=== PATIENT | male | born 1930 | race Caucasian/White ===

== ENCOUNTER → 2016-04-15 | Outpatient (CLI) | payer OTHER ==
[~2016-04-15] MED LIST: ALPOPS1510 OPB; ASPEC81 PO; BIMA0.038 OPB; CSPOPS OPB; LEVO25TA34 PO; METO25TA56 PO; OMEG10007 PO; SIMV80TA2 PO
[2016-04-15 11:32] LABS: ALT/SGPT 20 U/L (12-78); BLOOD UREA NITROGEN 12 mg/dl (7-18); BUN/CREATININE RATIO 10.5 (10-20); CALCIUM 8.7 mg/dl (8.5-10.1); CARBON DIOXIDE 25 mmol/L (21-32); CHLORIDE 108 mmol/L (98-107); GLUCOSE 115 mg/dl (70-99); POTASSIUM 4.3 mmol/L (3.5-5.1); SODIUM 142 mmol/L (136-145)
[2016-04-15 11:42] LABS: ALB/GLOB RATIO 0.9 (0.9-2); ALKALINE PHOSPHATASE 112 U/L (45-117); AST/SGOT 17 U/L (15-37)
[2016-04-15 12:15] LABS: ESTIMATED AVERAGE GLUCOSE 123 mg/dl; HA1C FLAG Normal (Normal)
--- NOTE | 2016-04-21 13:48 | CODING QUERY MEDICAL NECESSITY ---
SUPPORTING DIAGNOSIS NEEDED A supporting diagnosis is required for the test/procedure performed on this patient in order for us to be reimbursed by the patient's insurance. Please provide a supporting diagnosis for the following test/procedure listed below next to the test name along with your signature. *If there is no additional diagnosis for this patient that would support the following test/procedure please document that below next to the test/procedure. Test(s)/Procedure(s) that require a supporting diagnosis: * GLYCATED HEMOGLOBIN DIAGNOSIS: * DOS: 04/15/16 Provider Signature: Date: Thank you Julia Peacock Health Information Management Once completed, please kindly fax back to [phone] For questions please call [phone]
== END | disposition home or self-care (01) ==
LOC: C.LAB1850 10:20
PROVIDERS: ATTEND Family Medicine
DX: I10 Essential (primary) hypertension (principal); R73.03 Prediabetes; E03.9 Hypothyroidism, unspecified; E55.9 Vitamin D deficiency, unspecified; R26.81 Unsteadiness on feet

== ENCOUNTER → 2017-05-18 | Outpatient (CLI) | payer OTHER ==
[2017-05-18 17:14] LABS: ALBUMIN 3.8 gm/dl (3.4-5.0); BLOOD UREA NITROGEN 12 mg/dl (7-18); CALCIUM 9.4 mg/dl (8.5-10.1); CARBON DIOXIDE 26 mmol/L (21-32); CREATININE 1.04 mg/dl (0.60-1.40); GLUCOSE 98 mg/dl (70-99); POTASSIUM 4.4 mmol/L (3.5-5.1); SODIUM 137 mmol/L (136-145)
[2017-05-18 17:25] LABS: ALKALINE PHOSPHATASE 115 U/L (45-117); ALT/SGPT 31 U/L (12-78); AST/SGOT 23 U/L (15-37); CHOLESTEROL 142 mg/dl (0-200); LDL CHOLESTEROL CALCULATED 67 mg/dl
[2017-05-19 06:47] LABS: HEMOGLOBIN A1C 5.9 % (4.5-5.6)
== END | disposition home or self-care (01) ==
LOC: C.LABBC 13:34
PROVIDERS: ATTEND Physician Assistant Medical
DX: I10 Essential (primary) hypertension (principal); E78.5 Hyperlipidemia, unspecified; E03.9 Hypothyroidism, unspecified; G25.81 Restless legs syndrome; R73.03 Prediabetes; E55.9 Vitamin D deficiency, unspecified

== ENCOUNTER 2018-03-14 09:03 | Inpatient (IN) ==
--- NOTE | 2018-03-14 09:42 | Emergency Department Note ---
Entered by Sue Umanzor acting as a scribe for History of Present Illness General Chief complaint: Stroke/CVA Symptoms Stated complaint: FELL MON. DISOREINTED STROKE? Time Seen by Provider: 03/14/18 09:16 Source: patient and family History of Present Illness Provider complaint: confusion Onset (ago): week(s) (over the last week) Location: head Maximum Pain Intensity: 0 Quality: + other (confusion) Associated symptoms: + denies other symptoms (denies burning with urination); no cough, no fever/chills, no shortness of breath and no weakness The patient is an 87 year old male who presents to the Emergency Room with complaints of confusion over the last week. Per family, the patient fell out of bed 6 days ago but did not injure anything. His family states that the patient has been confused since this fall and woke up thinking that his was having an affair. Per family, the patient went to the walk-in clinic yesterday and was told to follow-up with his doctor. The patient denies burning with urination. The patient denies having any pain and also denies having chest pain or a racing heart. The patient also denies having numbness or weakness. The patient denies having a fever or cough. He denies having trouble with breathing. His family states that the patient has not been drinking as much. Per family, the patient is not on a blood thinner. The patient reports a history of a triple bypass surgery. Per family, the patient's brother has Parkinson's Disease. Home Medications Home Medications Medication Instructions Recorded Confirmed Type aspirin 81 mg PO QAM 03/14/18 03/14/18 History atorvastatin [Lipitor] 40 mg PO HS 03/14/18 03/14/18 History bimatoprost [Lumigan] 1 drp OPHTHALMIC (EYE) HS 03/14/18 03/14/18 History brimonidine-timolol [Combigan] 1 drp OPHTHALMIC (EYE) BID 03/14/18 03/14/18 History brinzolamide [Azopt] 1 drp OPHTHALMIC (EYE) BID 03/14/18 03/14/18 History levothyroxine 88 mcg PO QAM 03/14/18 03/14/18 History metoprolol tartrate 25 mg PO QAM 03/14/18 03/14/18 History Allergies Allergy/AdvReac Type Severity Reaction Status Date / Time Penicillins Allergy Severe ANAPHYLAXIS Verified 03/14/18 10:14 Past Med/Surg History Medical History CAD (coronary artery disease) HTN (hypertension) Hypothyroid HTN (hypertension) (Chronic) Surgical History S/P triple vessel bypass (Resolved) Family History Other Parkinsons disease Social History marital status: Current Living Situation: Spouse Other Information That Helps Us Care for You: No Feels Safe at Home: Yes Safety Concerns: Feels Safe At This Time Smoking Status: Former smoker Tobacco Type: cigars Do You Dip or Chew Tobacco: No Smoking End Date: 1954 Second Hand Exposure: No Tobacco Cessation Education Requested by Patient: No Hx Alcohol Use: No Hx Substance Use: No Beliefs That Will Affect Care: None Communication Ability: Effective Review of Systems See HPI for pertinent positives & negatives. and A total of 10 systems reviewed and were otherwise negative Physical Exam Vital Signs Vital Signs - 24 hr 03/14/18 09:10 03/14/18 09:26 03/14/18 09:43 Temperature 36.7 C Temperature Source Oral Sepsis Recent Fever Within 48 Hours No Sepsis New/Unexplained Change in Mental Status No Sepsis Action Taken by Nursing No Action Required Pulse Rate 106 H Pulse Rate [Left Brachial] Pulse Rhythm [Left Brachial] Pulse Strength [Left Brachial] Respiratory Rate 20 Respiratory Effort / Characteristics Non-Labored Spontaneous Respiratory Depth Normal Respiratory Pattern Regular Blood Pressure 172/82 H Blood Pressure [Left Arm] Blood Pressure Mean 112 Blood Pressure Mean [Left Arm] Blood Pressure Position [Left Arm] Pulse Oximetry 98 98 95 Pulse Oximetry [Left Index Finger] Oxygen Delivery Method Room Air Room Air Room Air Oxygen Delivery Method [Left Index Finger] 03/14/18 10:10 03/14/18 12:10 03/14/18 12:45 Temperature 36.5 C Temperature Source Oral Sepsis Recent Fever Within 48 Hours Sepsis New/Unexplained Change in Mental Status Sepsis Action Taken by Nursing Pulse Rate Pulse Rate [Left Brachial] 78 94 H 76 Pulse Rhythm [Left Brachial] Regular Pulse Strength [Left Brachial] Normal Respiratory Rate 18 18 16 Respiratory Effort / Characteristics Non-Labored Spontaneous Non-Labored Spontaneous Non-Labored Spontaneous Normal for Patient Respiratory Depth Normal Normal Normal Respiratory Pattern Regular Regular Regular Blood Pressure Blood Pressure [Left Arm] 136/69 187/88 H 157/75 H Blood Pressure Mean Blood Pressure Mean [Left Arm] 91 121 102 Blood Pressure Position [Left Arm] Lying Lying Lying Pulse Oximetry 97 97 97 Pulse Oximetry [Left Index Finger] 97 Oxygen Delivery Method Room Air Room Air Room Air Oxygen Delivery Method [Left Index Finger] Room Air General: Non-ill appearing older male in no acute distress. He is awake and oriented x3. He answers questions appropriately at present. HEENT: Normal cephalic atraumatic. Pupils are equal round and reactive to light. Extraocular movements are intact. Oropharynx is pink with moist mucous membranes. No swelling of the mouth lips or tongue. Neck: Supple with a midline trachea. No meningeal signs or stiffness, no JVD or bruits. No Stridor. Chest: Clear to auscultation bilaterally. No wheezes or rhonchi. No increased work of breathing. Heart: regular rate and rhythm. Abdomen: Soft nontender, nondistended without rebound guarding or rigidity. Extremities: No cyanosis clubbing or edema. No calf tenderness or assymetry Spine/Back. Non tender to palpation. No CVA tenderness Skin: Good turgor without rashes. Neurologic exam: Cranial nerves two through 12 are intact. Motor and sensation are intact and symmetrical throughout. Course 0919: Past medical records reviewed. The patient was evaluated in room B9, and a complete history and physical examination were performed. 1113: I updated the patient and his family who verbalized agreement and understanding of the treatment plan. 1119: I discussed the patient's case with Dr. Carloz Gaalviz who will evaluate the patient for further management. Consultations Consultation #1: Dr. Carloz Galaviz Time: 11:19 Administered Medications Gadobutrol (Gadavist 65ml) 8 ml IV ONCE PRN PRN Reason: Interaction Checking Stop: 03/18/18 14:48 Last Admin: 03/14/18 14:49 Dose: 8 ml Medical Decision Making Differential Diagnosis The patient is an 87 year old male who presents to the ED with confusion. Differential diagnosis includes CVA, intracranial process, UTI, arrhythmia, acute coronary syndrome, electrolyte or metabolic abnormality. Medical Records Attestation: I reviewed the patient's medical records. Home Medications Current Medication List: was personally reviewed by me Laboratory Data Attestation: I reviewed the patient's lab results. Result diagrams: 03/14/18 09:40 03/14/18 09:40 Lab Results 03/14/18 03/14/18 03/14/18 Range/Units 09:40 09:40 09:43 WBC 7.73 (4.8-10.8) K/uL RBC 4.42 L (4.7-6.1) M/uL Hgb 14.1 (14.0-18.0) g/dL Hct 42.1 (42-52) % MCV 95.2 (80-100) fL MCH 31.9 (25-34) pg MCHC 33.5 (32-36) g/dL RDW Std Deviation 46.9 H (36.4-46.3) fL RDW Coeff of [place] 13.5 (11.5-14.5) % Plt Count 210 (130-400) K/uL MPV 11.0 H (7.4-10.4) fL Immature Gran % (Auto) 0.1 % Neut % (Auto) 56.7 % Lymph % (Auto) 32.1 % [place] % (Auto) 9.2 % Eos % (Auto) 1.6 % Baso % (Auto) 0.3 % Immature Gran # (Auto) 0.01 (0.00-0.02) K/uL Neut # (Auto) 4.39 (1.4-6.5) K/uL Lymph # (Auto) 2.48 (1.2-3.4) K/uL [place] # (Auto) 0.71 H (0.11-0.59) K/uL Eos # (Auto) 0.12 (0-0.5) K/uL Baso # (Auto) 0.02 (0-0.2) K/uL Sodium 140 (136-145) mmol/L Potassium 3.6 (3.5-5.1) mmol/L Chloride 108 H (98-107) mmol/L Carbon Dioxide 25 (21-32) mmol/L Anion Gap 7.0 (3-11) BUN 15 (7-18) mg/dl Creatinine 1.18 (0.6-1.4) mg/dl Est Cr Clr Drug Dosing 47.5 ml/min Est GFR ( Amer) 63.5 Est GFR (Non-Af Amer) 54.8 BUN/Creatinine Ratio 12.6 (10-20) Glucose 130 H (70-99) mg/dl Calcium 9.1 (8.5-10.1) mg/dl Total Bilirubin 1.0 (0.2-1) mg/dl AST 29 (15-37) U/L ALT 30 (12-78) U/L Alkaline Phosphatase 113 (45-117) U/L POC Troponin I 0.07 H (0-0.045) ng/ml Troponin I (0-0.045) ng/ml Total Protein 8.0 (6.4-8.2) gm/dl Albumin 3.8 (3.4-5.0) gm/dl Globulin 4.2 H (2.5-4.0) gm/dl Albumin/Globulin Ratio 0.9 (0.9-2) Lipase 172 (73-393) U/L Vitamin B12 (211-911) pg/ml Folate (>5.38) ng/ml TSH (0.300-4.500) uIu/ml Urine Color Urine Appearance (Clear) Urine pH (4.5-7.5) Ur Specific [place] (1.000-1.030) Urine Protein (Negative) Urine Glucose (UA) (Negative) Urine Ketones (Negative) Urine Blood (Negative) Urine Nitrite (Negative) Urine Bilirubin (Negative) Urine Urobilinogen (Negative) Ur Leukocyte Esterase (Negative) Urine WBC (Auto) (0-5) /hpf Urine RBC (Auto) (0-4) /hpf U Hyaline Cast (Auto) (0-5) /lpf U Epithel Cells (Auto) (0-5) /lpf Urine Bacteria (Auto) (Negative) Lyme Disease IgG Ab (Negative) Lyme Disease IgM Ab (Negative) 03/14/18 03/14/18 03/14/18 Range/Units 10:20 13:11 13:11 WBC (4.8-10.8) K/uL RBC (4.7-6.1) M/uL Hgb (14.0-18.0) g/dL Hct (42-52) % MCV (80-100) fL MCH (25-34) pg MCHC (32-36) g/dL RDW Std Deviation (36.4-46.3) fL RDW Coeff of Olinda (11.5-14.5) % Plt Count (130-400) K/uL MPV (7.4-10.4) fL Immature Gran % (Auto) % Neut % (Auto) % Lymph % (Auto) % [place] % (Auto) % Eos % (Auto) % Baso % (Auto) % Immature Gran # (Auto) (0.00-0.02) K/uL Neut # (Auto) (1.4-6.5) K/uL Lymph # (Auto) (1.2-3.4) K/uL [place] # (Auto) (0.11-0.59) K/uL Eos # (Auto) (0-0.5) K/uL Baso # (Auto) (0-0.2) K/uL Sodium (136-145) mmol/L Potassium (3.5-5.1) mmol/L Chloride (98-107) mmol/L Carbon Dioxide (21-32) mmol/L Anion Gap (3-11) BUN (7-18) mg/dl Creatinine (0.6-1.4) mg/dl Est Cr Clr Drug Dosing ml/min Est GFR ( Amer) Est GFR (Non-Af Amer) BUN/Creatinine Ratio (10-20) Glucose (70-99) mg/dl Calcium (8.5-10.1) mg/dl Total Bilirubin (0.2-1) mg/dl AST (15-37) U/L ALT (12-78) U/L Alkaline Phosphatase (45-117) U/L POC Troponin I (0-0.045) ng/ml Troponin I 0.123 H* (0-0.045) ng/ml Total Protein (6.4-8.2) gm/dl Albumin (3.4-5.0) gm/dl Globulin (2.5-4.0) gm/dl Albumin/Globulin Ratio (0.9-2) Lipase (73-393) U/L Vitamin B12 623 (211-911) pg/ml Folate 13.21 (>5.38) ng/ml TSH 0.842 (0.300-4.500) uIu/ml Urine Color Dark Yellow Urine Appearance Clear (Clear) Urine pH 5.5 (4.5-7.5) Ur Specific [place] 1.024 (1.000-1.030) Urine Protein Negative (Negative) Urine Glucose (UA) Negative (Negative) Urine Ketones Trace H (Negative) Urine Blood Trace H (Negative) Urine Nitrite Negative (Negative) Urine Bilirubin Negative (Negative) Urine Urobilinogen Negative (Negative) Ur Leukocyte Esterase Negative (Negative) Urine WBC (Auto) 0 (0-5) /hpf Urine RBC (Auto) 0-4 (0-4) /hpf U Hyaline Cast (Auto) 0 (0-5) /lpf U Epithel Cells (Auto) 5-10 H (0-5) /lpf Urine Bacteria (Auto) Negative (Negative) Lyme Disease IgG Ab (Negative) Lyme Disease IgM Ab (Negative) 03/14/18 Range/Units 13:11 WBC (4.8-10.8) K/uL RBC (4.7-6.1) M/uL Hgb (14.0-18.0) g/dL Hct (42-52) % MCV (80-100) fL MCH (25-34) pg MCHC (32-36) g/dL RDW Std Deviation (36.4-46.3) fL RDW Coeff of [place] (11.5-14.5) % Plt Count (130-400) K/uL MPV (7.4-10.4) fL Immature Gran % (Auto) % Neut % (Auto) % Lymph % (Auto) % [place] % (Auto) % Eos % (Auto) % Baso % (Auto) % Immature Gran # (Auto) (0.00-0.02) K/uL Neut # (Auto) (1.4-6.5) K/uL Lymph # (Auto) (1.2-3.4) K/uL [place] # (Auto) (0.11-0.59) K/uL Eos # (Auto) (0-0.5) K/uL Baso # (Auto) (0-0.2) K/uL Sodium (136-145) mmol/L Potassium (3.5-5.1) mmol/L Chloride (98-107) mmol/L Carbon Dioxide (21-32) mmol/L Anion Gap (3-11) BUN (7-18) mg/dl Creatinine (0.6-1.4) mg/dl Est Cr Clr Drug Dosing ml/min Est GFR ( Amer) Est GFR (Non-Af Amer) BUN/Creatinine Ratio (10-20) Glucose (70-99) mg/dl Calcium (8.5-10.1) mg/dl Total Bilirubin (0.2-1) mg/dl AST (15-37) U/L ALT (12-78) U/L Alkaline Phosphatase (45-117) U/L POC Troponin I (0-0.045) ng/ml Troponin I (0-0.045) ng/ml Total Protein (6.4-8.2) gm/dl Albumin (3.4-5.0) gm/dl Globulin (2.5-4.0) gm/dl Albumin/Globulin Ratio (0.9-2) Lipase (73-393) U/L Vitamin B12 (211-911) pg/ml Folate (>5.38) ng/ml TSH (0.300-4.500) uIu/ml Urine Color Urine Appearance (Clear) Urine pH (4.5-7.5) Ur Specific [place] (1.000-1.030) Urine Protein (Negative) Urine Glucose (UA) (Negative) Urine Ketones (Negative) Urine Blood (Negative) Urine Nitrite (Negative) Urine Bilirubin (Negative) Urine Urobilinogen (Negative) Ur Leukocyte Esterase (Negative) Urine WBC (Auto) (0-5) /hpf Urine RBC (Auto) (0-4) /hpf U Hyaline Cast (Auto) (0-5) /lpf U Epithel Cells (Auto) (0-5) /lpf Urine Bacteria (Auto) (Negative) Lyme Disease IgG Ab Negative (Negative) Lyme Disease IgM Ab Negative (Negative) Imaging Data Radiologist's Impression: Radiology results as stated below per my review and the radiologist's interpretation: SINGLE VIEW CHEST CLINICAL HISTORY: Atypical chest pain. FINDINGS: An AP, portable, upright chest radiograph is compared to study dated . The examination is degraded by portable technique and patient rotation. The patient is status post midline sternotomy. The heart is enlarged and there is atherosclerotic calcification of the thoracic aorta. The pulmonary vasculature is noncongested. Chronic interstitial thickening and mild elevation of the right hemidiaphragm are similar to previous. There is bibasilar scarring/ atelectasis. No airspace consolidation or pleural effusion is identified. No pneumothorax is seen. The skeletal structures are osteopenic. The bony thorax is grossly intact. IMPRESSION: Cardiomegaly with no acute cardiopulmonary abnormality. Electronically signed by: Paolo Bill M.D. 03/14/2018 10:[address] SCAN OF THE BRAIN WITHOUT IV CONTRAST CLINICAL HISTORY: Fall. Change in mental status. COMPARISON STUDY: No priors. TECHNIQUE: Unenhanced axial CT scan of the brain is performed from the vertex to the skull base. A dose lowering technique was utilized adhering to the principles of ALARA. The vertex was scanned twice due to motion artifact. CT DOSE: 691.05 mGy.cm FINDINGS: Brain parenchyma: There are age-related involutional changes noting moderate patchy subcortical and periventricular microangiopathic change. There is no hemorrhage, mass effect, or evidence of acute territorial ischemia by CT criteria. Loya-white matter differentiation is preserved. No extra-axial fluid collection is seen. Ventricles, sulci, cisterns: Prominent secondary to involutional change. Intracranial vasculature: There is atherosclerotic calcification of the cavernous carotid and vertebral arteries. Calvarium: The skeletal structures are osteopenic. No depressed calvarial fracture is identified. Sinuses and mastoids: The visualized paranasal sinuses are clear. The mastoid air cells are well pneumatized. Orbits: The bony orbits are grossly intact. There are bilateral ocular lens implants. IMPRESSION: There is no hemorrhage, mass effect, or evidence of acute territorial ischemia by CT criteria. Electronically signed by: Paolo Bill M.D. 03/14/2018 10:16 AM ECG Data Attestation: I personally reviewed and interpreted this ECG as follows: Indication: weakness Rate (beats per minute): 90 Rhythm: normal sinus Findings: + other (non-specific T-wave abnormality); no ST depression, no ST elevation and no acute ischemic change Comparison ECG Date: from (11/23/08) Change: no significant change Blood Pressure Blood Pressure Findings: Normal blood pressure MDM Narrative This patient comes in as described above. He fell a couple days ago when he slid out of bed. There is no apparent injuries. He had some more disorientation lately. He has no focal neurologic deficits at present. he does not seem to be disoriented but apparently he thought his was having an affair this morning. No external signs of trauma of the head. IV access established. I did order a CAT scan of the head as well as EKG, chest x-ray , andmultiple blood tests and urinalysis and culture. He had no fever or anything to suggest sepsis so far. His initial EKG shows normal sinus rhythm without any definite acute ischemic changes he has some chronic T wave inversions anteriorly which are unchanged. 2009 EKG. He had no chest pain or any symptoms to suggest cardiac disease. His troponin is mildly elevated 0.07 however which is concerning for possible cardiac disease or arrhythmia. CAT scan of his head is unremarkable. Chest x-ray shows no acute findings. He has no significant atrial or metabolic abnormalities and nothing to suggest sepsis or infection at this point urinalysis was unremarkable with a culture pending. 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 I have consulted Trudy Layne from [facility] to see him for these measures. Impression & Plan Altered mental status, Elevated troponin Discharge Plan Visit Data *Final* Discharge Date/Time: 03/14/18 12:20 Chief Complaint: Stroke/CVA Symptoms Stated Complaint: FELL MON. DISOREINTED STROKE? ED Provider: Vern Mueller Discharge Problem: Altered mental status, Elevated troponin Patient Disposition: Admitted As Inpatient Discharge Instructions Interventions: ED Discharge Assessment Last Done: 03/14/18 12:20 The scribe's documentation has been prepared under my direction and personally reviewed by me in its entirety. I confirm that the note above accurately reflects all work, treatment, procedures, and medical decision making performed by me.
[2018-03-14 09:46] LABS: Basophils # (auto) 0.02 K/uL (0-0.2); Basophils % (auto) 0.3 %; Eosinophils # (auto) 0.12 K/uL (0-0.5); Eosinophils % (auto) 1.6 %; Hematocrit (blood only) 42.1 % (42-52); Hemoglobin 14.1 g/dL (14.0-18.0); Immature Granulocytes # (auto) 0.01 K/uL (0.00-0.02); Immature Granulocytes % (auto) 0.1 %; Lymphocytes # (auto) 2.48 K/uL (1.2-3.4); Lymphocytes % (auto) 32.1 %; Mean Corpuscular Hgb Conc 33.5 g/dL (32-36); Mean Corpuscular Volume 95.2 fL (80-100); Monocytes # (auto) 0.71 K/uL (0.11-0.59); Monocytes % (auto) 9.2 %; Neutrophils # (auto) 4.39 K/uL (1.4-6.5); Neutrophils % (auto) 56.7 %; Platelet Count 210 K/uL (130-400); RDW Coefficient of Variation 13.5 % (11.5-14.5); RDW Standard Deviation 46.9 fL (36.4-46.3); Red Blood Count 4.42 M/uL (4.7-6.1); White Blood Count 7.73 K/uL (4.8-10.8)
[2018-03-14 10:05] LABS: Albumin Level 3.8 gm/dl (3.4-5.0); BUN Creatinine Ratio 12.6 (10-20); Calcium 9.1 mg/dl (8.5-10.1); Creatinine Clr Calc Pharmacy 47.5 ml/min; Est GFR (African American) 63.5; Est GFR (Non-African American) 54.8; Potassium 3.6 mmol/L (3.5-5.1)
[2018-03-14 10:08] LABS: Albumin Globulin Ratio 0.9 (0.9-2); Globulin 4.2 gm/dl (2.5-4.0)
--- NOTE | 2018-03-14 10:18 | CT Scan Report ---
CT SCAN OF THE BRAIN WITHOUT IV CONTRAST CLINICAL HISTORY: Fall. Change in mental status. COMPARISON STUDY: No priors. TECHNIQUE: Unenhanced axial CT scan of the brain is performed from the vertex to the skull base. A do se lowering technique was utilized adhering to the principles of ALARA. The vertex was scanned twice due to motion artifact. CT DOSE: 691.05 mGy.cm FINDINGS: Brain parenchyma: There are age-related involutional changes noting moderate patchy subcortical and periventricular microangiopathic change. There is no hemorrhage, mass effect, or evidence of acute te rritorial ischemia by CT criteria. Loya-white matter differentiation is preserved. No extra-axial flu id collection is seen. Ventricles, sulci, cisterns: Prominent secondary to involutional change. Intracranial vasculature: There is atherosclerotic calcification of the cavernous carotid and vertebr al arteries. Calvarium: The skeletal structures are osteopenic. No depressed calvarial fracture is identified. Sinuses and mastoids: The visualized paranasal sinuses are clear. The mastoid air cells are well pneu matized. Orbits: The bony orbits are grossly intact. There are bilateral ocular lens implants. IMPRESSION: There is no hemorrhage, mass effect, or evidence of acute territorial ischemia by CT cornelius martinez. Electronically signed by: Paolo Bill M.D. 03/14/2018 10:16 AM
--- NOTE | 2018-03-14 10:29 | XRay Report ---
SINGLE VIEW CHEST CLINICAL HISTORY: Atypical chest pain. FINDINGS: An AP, portable, upright chest radiograph is compared to study dated 05/10/2008. The examinat ion is degraded by portable technique and patient rotation. The patient is status post midline sterno marcia. The heart is enlarged and there is atherosclerotic calcification of the thoracic aorta. The pul monary vasculature is noncongested. Chronic interstitial thickening and mild elevation of the right h emidiaphragm are similar to previous. There is bibasilar scarring/atelectasis. No airspace consolidat ion or pleural effusion is identified. No pneumothorax is seen. The skeletal structures are osteopeni c. The bony thorax is grossly intact. IMPRESSION: Cardiomegaly with no acute cardiopulmonary abnormality. Electronically signed by: Paolo Bill M.D. 03/14/2018 10:27 AM
[2018-03-14 10:45] LABS: Appearance Urine Clear (Clear); Bacteria Urine Automated Negative (Negative); Bilirubin Urine Negative (Negative); Cast Urine Automated 0 /lpf (0-5); Color Urine Dark Yellow; Glucose Urine UA Negative (Negative); Ketones Urine Trace (Negative); Leukocyte Esterase Urine Negative (Negative); Nitrite Urine Negative (Negative); Protein Urine Negative (Negative); Specific Gravity Urine 1.024 (1.000-1.030); Urobilinogen Urine Negative (Negative); WBC Urine Automated 0 /hpf (0-5); pH Urine 5.5 (4.5-7.5)
--- NOTE | 2018-03-14 12:04 | History & Physical Report ---
Date of Service March 14, 2018 Assessment & Plan (1) Altered mental status: Uncertain etiology CT head neg for acute CXR, UA neg with WBC WNL MRI/MRA pending ECHO pending TSH, lyme, B12, folate pending t/c neuro c/s if workup is neg (2) Elevated troponin: Initial trop 0.07, serials pending EKG with nonspecific T wave abn Hx of CABG ECHO pending (3) Fall: PT/OT pending (4) HTN (hypertension): continue home meds (5) CAD (coronary artery disease): continue home meds (6) Hypothyroid: .cont THS pending (7) DVT prophylaxis: SCDs, aspirin History of Present Illness Chief Complaint: 87 y/o M who was brought to the ED by family for c/o AMS. and daughter state that pt has not been himself since around [place]. states that pt is "delusional". Both and daughter are having a difficult time stating what exactly is altered about the pt other than he is accusing his of things she has not done, such as having an affair. states that pt has been moving around at night thinking that dreams are real. She states she finds him standing near her bed and that one night he sat down on her bed and she noted his lips were white and he wasn't breathing until she started rubbing his back. They state that pt is eating and taking his medications appropriately. He has no episodes of word finding issues although things that he says happened are not happening. Pt fell out of bed on Thursday. He states he was dreaming and tried to get out of bed, but was tangled in the sheets and fell. He denies LOC. He states this happened about once before, several months ago. No other falls. Pt does not feel that anything is wrong. He states that his family is "making things up". Pt denies fever, SOB, chest pain, abd pain, n/v/c/d, LE pain or swelling. Family states he has had no other specific complaints. Pt and used to live in [place] and had dogs. They had several tick infestations during their time there. feels she cannot manage pt at home in his current state. They went to PCP office yesterday during walk-in hours, but no specific issue was identified for further tx at that time. Primary Care Provider: HILARIO Gomez Allergies Allergy/AdvReac Type Severity Reaction Status Date / Time Penicillins Allergy Severe ANAPHYLAXIS Verified 03/14/18 10:14 Home Medications Home Medications Medication Instructions Recorded Confirmed Type aspirin 81 mg PO QAM 03/14/18 03/14/18 History atorvastatin [Lipitor] 40 mg PO HS 03/14/18 03/14/18 History bimatoprost [Lumigan] 1 drp OPHTHALMIC (EYE) HS 03/14/18 03/14/18 History brimonidine-timolol [Combigan] 1 drp OPHTHALMIC (EYE) BID 03/14/18 03/14/18 History brinzolamide [Azopt] 1 drp OPHTHALMIC (EYE) BID 03/14/18 03/14/18 History levothyroxine 88 mcg PO QAM 03/14/18 03/14/18 History metoprolol tartrate 25 mg PO QAM 03/14/18 03/14/18 History Past Med/Surg History Medical History HTN (hypertension) (Chronic) Surgical History S/P triple vessel bypass (Resolved) Family History Other Parkinsons disease Social History Feels Safe at Home: Yes Smoking Status: Former smoker Smoking End Date: 1954 Hx Alcohol Use: No Hx Substance Use: No Preferred Language: [place] Review of Systems Pertinent positives and negatives reviewed in HPI--all others negative Physical Exam 2 Vital Signs (Past 24 Hours): Last Vital Signs Temp 36.7 C 03/14/18 09:10 Pulse 78 03/14/18 10:10 Resp 18 03/14/18 10:10 BP 136/69 03/14/18 10:10 Pulse Ox 97 03/14/18 10:10 Constitutional: WD/WN, vitals as above Eyes: normal visual roper by confrontation and + anicteric sclerae Neck: normal visual inspection and trachea midline Respiratory: normal respiratory effort, lungs clear to auscultation Cardiovascular: Rate/Rhythm: regular rate and regular rhythm Gastrointestinal (Abdomen): Inspection/Auscultation: abdomen not distended Percussion/Palpation: abdomen soft; abdomen nontender Musculoskeletal: Head/Neck/Chest: normocephalic and head atraumatic negative for edema, peripheral pulses intact Skin: no rashes, warm and dry Neurologic: awake; not confused Speech / Cognition: normal speech Psychiatric: A+Ox3, euthymic affect Speech: normal rate/rhythm/volume of speech Affect: + irritable affect (most of conversation is pleasant, however pt does get irritated at the suggestion that something is wrong) Pt was able to tell me all of his medical hx without issue. He recalled what he had for dinner last night and events of last few days, including this morning. Results & Data Diagnostic Findings CXR neg CT head neg for acute ECG Findings: + prolonged QT Additional Comments: Nonspecific T wave abnormality Code Status & VTE Plan Code Status DNR/DNI, per pt, , and daughter. Living will is completed and daughter is POA _ (1) Altered mental status Altered mental status type: unspecified Coma depth: Coma timing: Qualified Code(s): R41.82 - Altered mental status, unspecified
[2018-03-14] MEDS ORDERED: MAGNESIUM HYDROXIDE SUSP 30 ML UDC PO PRN (13:00)
[2018-03-14] MEDS ORDERED: ONDANSETRON INJ 2 MG/ML 2 ML VIAL IV PRN (13:00)
[2018-03-14] MEDS ORDERED: ACETAMINOPHEN 325 MG TAB PO PRN (13:00)
[2018-03-14] MEDS ORDERED: PHARMACIST DISCHARGE MED REC CONSULT PRN (13:00)
[2018-03-14 13:56] LABS: Troponin I 0.123 ng/ml (0-0.045)
[2018-03-14 14:01] LABS: Folate (Folic Acid) 13.21 ng/ml (>5.38)
[2018-03-14 14:21] LABS: Lyme Ab IgG w/WB Rflx Negative (Negative); Lyme Ab IgM w/WB Rflx Negative (Negative)
[2018-03-14] MEDS ORDERED: GADOBUTROL 65ML VIAL IV PRN (14:49)
--- NOTE | 2018-03-14 15:06 | Magnetic Resonance Report ---
MR ANGIOGRAM OF THE BRAIN CLINICAL HISTORY: Change in mental status. COMPARISON STUDY: CT of the brain performed the same day 03/14/2018. TECHNIQUE: 3-D [id number] MR angiography of the intracranial circulation is performed. 3-D tumble views are created and assessed. IV contrast was not administered for this examination. FINDINGS: The internal carotid arteries are widely patent bilaterally, as are the anterior and middl e cerebral arteries. The right vertebral artery and the basilar artery are widely patent, as are the posterior cerebral arteries. There is loss of the left vertebral artery flow void at the skull base. Flow is shown within the distal left vertebral artery below the basilar. The right vertebral artery is dominant. There is no aneurysm or high-grade stenosis seen throughout the intracranial circulatio n. The brain parenchyma is normal as visualized. IMPRESSION: 1. There is loss of the left vertebral artery flow void at the skull base. This could be related to o cclusion, slow flow, or reversal of flow. The left vertebral artery flow void is reconstituted below the basilar artery. See report of the pending contrast-enhanced MR angiogram of the neck for further details. 2. Otherwise unremarkable MR angiogram of the brain. The remaining intracranial vessels are widely pa tent. Electronically signed by: Paolo Bill M.D. 03/14/2018 3:05 PM
--- NOTE | 2018-03-14 15:23 | Magnetic Resonance Report ---
MR ANGIOGRAM OF THE NECK COMBO CLINICAL HISTORY: Change in mental status. COMPARISON STUDY: MR angiogram of the brain performed concurrently on 03/14/2018. TECHNIQUE: Axial 3-D [id number] MR angiography of the neck is performed. Subsequently, following the IV administration of 8 cc of Gadavist. Coronal MR angiogram of the neck was performed to corrobor ate the findings. 3-D reformats are created and assessed. All measurements were calculated based on N ASCET criteria. FINDINGS: Visualized portions of the thoracic aorta are normal in caliber. The aortic arch demonstrat es standard 3-vessel anatomy. The subclavian arteries are widely patent bilaterally. The right common carotid artery is widely patent. There is atherosclerotic irregularity with less than 50% stenosis a t the origin of the right internal carotid artery. The remainder of the right internal carotid artery is widely patent, as is the right external carotid artery. The left common carotid artery is widely patent. There is high-grade (greater than 75%) stenosis at the origin of the left internal carotid ar agustin. The remainder of the left internal carotid artery is widely patent, as is the left external car otid artery. The right vertebral artery is widely patent and dominant. 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 This is reconstituted at the skull base. The visualized intr acranial vessels at the skull base are otherwise patent. IMPRESSION: 1. There is a short segment of high-grade (greater than 75%) stenosis at the origin of the left inter nal carotid artery. 2. There is less than 50% luminal narrowing at the origin of the right internal carotid artery second rayna to atherosclerotic plaque and irregularity. 3. The carotid arteries are otherwise patent. 4. 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 This is reconstituted at the skull base. Electronically signed by: Paolo Bill M.D. 03/14/2018 3:22 PM
--- NOTE | 2018-03-14 15:27 | Magnetic Resonance Report ---
MRI OF THE BRAIN COMBO CLINICAL HISTORY: Change in mental status. COMPARISON STUDY: CT of the brain dated 03/14/2018. TECHNIQUE: MRI of the brain was performed utilizing various T1 and T2-weighted sequences in the axial , sagittal, and coronal planes. Contrast-enhanced sequences were acquired following the administratio n of 8 cc of Gadavist. FINDINGS: Brain parenchyma: There are age-related involutional changes noting moderate subcortical and perivent ricular microangiopathic disease. There is no hemorrhage or mass effect. There is no restricted diffu beverly to suggest acute ischemia. No enhancing mass lesion is identified on the postcontrast images. Gr ay-white matter differentiation is preserved. No extra-axial fluid collection is seen. The cerebellar tonsils are normal in configuration. Ventricles, sulci, and cisterns: Prominent secondary to involutional change. Pituitary and sella: Unremarkable. Intracranial vasculature: There is loss of the left vertebral artery flow void below the skull base. There remaining flow-voids at the skull base are maintained. Orbits: The bony orbits are grossly intact. Orbital contents are normal in appearance, noting bilater al ocular lens implants. Sinuses and mastoids: There is trace mucosal thickening in the left maxillary antrum. The remaining p aranasal sinuses and the mastoid air cells are clear. Calvarium: Unremarkable. Cervical cord: Partially visualized cervical spinal cord is normal in morphology and signal intensity . IMPRESSION: 1. There is no hemorrhage, enhancing mass, or evidence of acute ischemia. 2. There is loss of the left vertebral artery flow void below the skull base. Electronically signed by: Paolo Bill M.D. 03/14/2018 3:25 PM
[2018-03-14] MEDS: BRINZOLAMIDE (AZOPT) OPS 10 ML BTL OP SCH (21:38)
[2018-03-14] MEDS: BIMATOPROST 0.01% OP SOLN 2.5 ML BTL OP SCH (21:38)
[2018-03-14] MEDS: ATORVASTATIN 40 MG TAB PO SCH (21:38)
[2018-03-14] MEDS: BRIMONIDINE TARTRATE/TIMOLOL OP SCH (21:39)
[2018-03-15] MEDS: LEVOTHYROXINE SODIUM 88 MCG TABLET PO SCH (05:34)
[2018-03-15 06:50] LABS: Estimated Average Glucose 126 mg/dl
[2018-03-15 07:55] LABS: Chol HDL Ratio 2; Cholesterol 127 mg/dl (0-200); HDL Cholesterol 57 mg/dl; LDL Cholesterol Calculated 55 mg/dl; Triglycerides 77 mg/dl (0-150); VLDL Cholesterol 15 mg/dl
[2018-03-15] MEDS: BRINZOLAMIDE (AZOPT) OPS 10 ML BTL OP SCH ×2 (09:01→21:27)
[2018-03-15] MEDS: ASPIRIN 81 MG ECTAB PO SCH (09:01)
[2018-03-15] MEDS: METOPROLOL TARTRATE 25 MG TAB PO SCH (09:01)
[2018-03-15] MEDS: BRIMONIDINE TARTRATE/TIMOLOL OP SCH ×2 (09:01→21:27)
--- NOTE | 2018-03-15 12:44 | Consultation ---
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 If pt recovers from current AMS, could consider elective L CEA in future, otherwise, would not recommend surgical intervention on this lesion. Please call if needed. Present on Admission?: Yes History of Present Illness Reason for Consultation: vertebral art occlusion, L ICAS Attending Physician: Alexandru Oswald DO History of Present Illness 87 yo m with hx of CAD, HTN, hypothyroidism, admitted with altered mental status , seen in consultation today for L vertebral art occlusion and LICAS noted on neck MRA. Pt states he is here bc his family is "worried" about him since he had a fall approx 2 weeks prior. Pt's daugter gives more hx, but requests to speak beyond pt's hearing d/t pt denying everything and believing they are lying about his behavior and becoming belligerent. Pt's family states they brought him to [facility] d/t confusion, paranoia, inability to perform certain activities( such as walk to the car and get in, and address a letter), which began suddenly about 1-2 weeks prior. states unable to take care of him bc his balance is off, and his sx are not improving. Pt denies vision changes, unilateral extremity weakness numbness or tingling, facial droop, difficulty speaking or word finding. Denies LONG[place], fever, recent illness, chest pain, SOB, abd pain, n/V, rest pain, claudication, other complaints. MRA demonstrates L vertebral art occlusion and dominant R vert art, as well as approx 80% LICAS. Allergies Allergy/AdvReac Type Severity Reaction Status Date / Time Penicillins Allergy Severe ANAPHYLAXIS Verified 03/14/18 10:14 Home Medications Home Medications Medication Instructions Recorded Confirmed Type aspirin 81 mg PO QAM 03/14/18 03/14/18 History atorvastatin [Lipitor] 40 mg PO HS 03/14/18 03/14/18 History bimatoprost [Lumigan] 1 drp OPHTHALMIC (EYE) HS 03/14/18 03/14/18 History brimonidine-timolol [Combigan] 1 drp OPHTHALMIC (EYE) BID 03/14/18 03/14/18 History brinzolamide [Azopt] 1 drp OPHTHALMIC (EYE) BID 03/14/18 03/14/18 History levothyroxine 88 mcg PO QAM 03/14/18 03/14/18 History metoprolol tartrate 25 mg PO QAM 03/14/18 03/14/18 History Patient History Medical History CAD (coronary artery disease) HTN (hypertension) Hypothyroid HTN (hypertension) (Chronic) Surgical History S/P triple vessel bypass (Resolved) Family History Other Parkinsons disease Social History marital status: Current Living Situation: Spouse Other Information That Helps Us Care for You: No Feels Safe at Home: Yes Safety Concerns: Feels Safe At This Time Smoking Status: Former smoker Tobacco Type: cigars Do You Dip or Chew Tobacco: No Smoking End Date: 1954 Second Hand Exposure: No Tobacco Cessation Education Requested by Patient: No Hx Alcohol Use: No Hx Substance Use: No Beliefs That Will Affect Care: None Preferred Language: German Communication Ability: Effective Advertising Manager Required: No Review of Systems Constitutional: no fever, no chills, no sweats, no fatigue, no malaise and no weight loss Eyes: no blind spots and no problem reported Ear, Nose, Mouth, Throat: no hearing loss and no sore throat Respiratory: no cough, no dyspnea, no dyspnea on exertion and no hemoptysis Cardiovascular: no chest pain, no palpitations, no syncope, no claudication and no problem reported Gastrointestinal: no abdominal pain, no early satiety, no nausea, no vomiting, no cramping, no change in bowel habits, no diarrhea/loose stools and no blood in stools Musculoskeletal: no back pain, no joint pain, no swelling and no muscle weakness Integumentary: no rash, no non-healing lesions, no skin ulcer, no wounds and no erythema Neurologic: + unsteadiness, + behavioral changes and + confusion; no localized weakness, no generalized weakness, no paralysis, no loss of sensation, no tingling, no numbness, no paresthesia, no seizure-like activity, no syncope and no headache(s) Psychiatric: as per Subjective / HPI Hematologic / Lymphatic: no easy bleeding, no easy bruising, no coagulopathy, no night sweats and no unexplained weight loss Physical Exam 2 Vital Signs (Past 24 Hours): Last Vital Signs Temp 36.9 C 03/15/18 11:33 Pulse 60 03/15/18 11:33 Resp 19 03/15/18 11:33 BP 156/76 H 03/15/18 11:33 Pulse Ox 97 03/15/18 11:33 Constitutional: WD/WN, vitals as above well developed, well nourished, + ill appearing (mildly), + thin, + frail appearing, + disheveled, cooperative and comfortable; not in distress Eyes: PERRL, conjunctivae normal, anicteric sclerae EOM intact bilaterally ENMT: external ear and nose normal, oropharynx normal Ears: no hearing impairment Nose: no nasal discharge Throat: no posterior oropharynx abnormality Neck: trachea midline, no thyromegaly no tracheal deviation, no neck crepitus and neck nontender Respiratory: normal respiratory effort, lungs clear to auscultation able to speak in complete sentences; does not use accessory muscles, no cough, not tachypneic and no audible wheezes Auscultation: lungs clear to auscultation bilaterally and + diminished lung sounds; no rhonchi and no wheezes Cardiovascular: RRR, no murmur, no edema Heart Sounds: no gallop and no murmur Vessels: + carotid bruit, normal peripheral pulses, femoral pulses present, posterior tibial pulses present, dorsalis pedis pulses present, brachial pulses present and radial pulses present; no femoral bruit Extremities: normal capillary refill; no edema and no varicosities Chest (Breasts): Chest: normal inspection of chest Gastrointestinal (Abdomen): normal bowel sounds, soft, nontender, no hepatosplenomegaly Inspection/Auscultation: abdomen normal to inspection and normal bowel sounds; abdomen not distended Percussion/Palpation: abdomen soft ; abdomen nontender, no guarding, abdomen not rigid and no abdominal mass Musculoskeletal: no cyanosis or clubbing, extremities motor strength 5/5 Head/Neck/Chest: normocephalic, head atraumatic and neck supple Extremities: extremities normal to inspection and strength 5/5 throughout; full ROM of extremities and no clubbing Skin: no rashes, warm and dry normal turgor, + turgor decreased and + ulcer ; no lesions, no wound, no erythema and no excoriations Trauma: no hematoma and no puncture Neurologic: moves all extremities and awake; no focal motor deficits, not confused (pt oriented, but does not truly understand why he is in hospital) and not obtunded Speech / Cognition: no expressive aphasia and no receptive aphasia Motor/Sensory: no tremor, no pronator drift and no sensory deficit Cranial Nerves: EOM intact bilaterally, normal facial strength and tongue midline Psychiatric: Orientation: alert, oriented x 3, oriented to person, oriented to place, oriented to time and cooperative Apperance: appropriately dressed, + disheveled and appeared stated age Eye Contact: good eye contact Speech : + loud speech Affect: + labile affect and + irritable affect Thought Process: + tangential thought process Cognition: recent memory grossly intact , remote memory grossly intact, attention grossly intact and language grossly intact Estimated Intelligence: average estimated intelligence Insight: + limited insight Lymphatic: no lymphedema
--- NOTE | 2018-03-15 15:20 | Hospitalist Progress Note ---
Date of Service March 15, 2018 Assessment & Plan (1) Altered mental status: - This is of uncertain etiology but does appear he has had progressive decline but acutely worsened since [place] - Exhibited paranoid thinking, ataxic movements, balance issues, hallucinations - these seem to wax and wane as he was A&O x 3 during my visit but then would fixate on something and redirection was difficult by the end of my visit - MRI is negative for CVA - given the degree of stenosis - possible small brain stem infarct maybe not captured on imaging? 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 - Vascular consulted - no intervention at this time - can re-evaluate pending improvement in mentation - When discussed with the patient he reports he knew about his carotid stenosis and reports he wouldn't want surgery regardless because of his age and the risk Present on Admission?: Yes (3) Elevated troponin: - Troponins peaked at 0.123 and trending down - T wave inversions remain - Reports no CP or SOB; Has a H/O CABG - Echo - EF 65-70%; no regional wall motion abnormalities - ASA 81 mg daily; Atorvastatin 40 mg daily; Metoprolol 25 mg daily Present on Admission?: Yes (4) Fall: - Patient reports this was mechanical as he has RLS and was trying to get out of bed but got tangled in his bedding. confirms fall but states he more rolled out of bed then had a direct fall - He clearly does exhibit some tremulous movements and given his poor vision this is likely multifactorial - it does not appear that falls are frequent - PT/OT ordered - appreciate continued assessment Present on Admission?: Yes (5) HTN (hypertension): - Metoprolol 25 mg daily Present on Admission?: Yes (6) CAD (coronary artery disease): - H/O CABG - ASA 81 mg daily; Atorvastatin 40 mg daily; Metoprolol 25 mg daily Present on Admission?: Yes (7) Hypothyroid: - TSH WNL - Levothyroxine 88 mcg daily Present on Admission?: Yes (8) DVT prophylaxis: SCDs Disposition: Await PT/OT evaluations; Appreciate Neurology assessment; family is uncertain they can care for patient at this time Supervising Physician Co-Signing Physician Notes Attending note: patient seen and examined with Cassie Mondragon PA-C. I agree with her progress note. Spent 40 minutes at the bedside with patient and his family, took my own HPI and discussed symptoms. Performed neurologic exam. Performed mini mental exam. Mini mental exam patient scored a 19, has high school education level, suggests moderate to severe cognitive impairment on neurologic exam, strength intact but it is quickly apparent that patient has some type of movement disorder resting tremor bilaterally quick, almost ballistic movements with finger to nose testing and rapid alternating movements difficult time performing finger to finger testing but suspect that is due to poor vision could not elicit any cogwheel rigidity gait is unsteady, wide based, requires a walker to maintain balance - Confusion, delusional thinking normal MRI brain, MRA neck with vertebral thrombus, likely chronic given circulation intact after clot although family says that things have gotten a lot worse recently, suspect he has had dementia for some time scored low on mini mental exam, difficult time with short term memory does a good job with covering memory issues, redirecting questions, speaking about what he can remember will ask neurology to see tomorrow - Movement disorder had a family history with a brother with Parkinson disease certainly has difficulties with balance and coordination movements are not necessarily slow, but almost ballistic, too rapid and uncontrolled slapped himself in the face with finger to nose testing rapid alternating movements caused him to flap his hands violently as above, will ask neurology to evaluate tomorrow Subjective Patient seen and evaluated. Is alert and oriented and has good recall as he was asking about testing that was performed during this admission. States he feels well and anticipates returning home. States he will stay to get checked out but "I know I can leave when I want to" and was joking around a little bit. He only had a small portion of his lunch and is leaning towards the L side but states he dropped something and was able to reposition independently. Had a long conversation about random topics as redirection was slightly difficult. Thinks he is here because of a fall a few weeks ago that he describes as mechanical as he fell out of bed due to being tangled in his blankets. confirms he fell. Initially talked with patient alone and he states he was in the cafeteria. He does not verbalize any complaints and does not feel that anything is wrong with him. After my assessment, I stated I would be back to talk with his family as well. However, patient then tried to move his tray but had a spasm-like movement and nearly knocked the bedside tray over. He then continued to ask for help to get out of bed. When asked where he wanted to go he replied to the cafeteria with his . Tried to redirect but he kept trying to get out of bed. He kept asking me to move "that" but could not name the object. It apparently was the foot of the bed. Finally he did settle down and stated he would just wait for his to come back. He was noted to have tremors of upper and lower extremities. Discussed with and daughter separately. Per their account, patient has had progressive decline in memory/confusion however since [place] this has drastically exacerbated. They note that he is having ataxic movements and balance issues. They also report slurring of his speech which I did not witness however would occ. mumble things that were hard to hear. He has exhibited paranoid thinking such as his having an affair. They also report that he appears to be hallucinating and will talk about things that are not present. No acute finding were found to explain this. He does have poor vision so some testing is difficult to confirm if this is neurologic vs sensory. As finger/ nose testing was difficult but showed tremulous movements. He does endorse RLS and states his brother has Parkinsons. 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 Patient states he knew about the "blockages in my neck" for awhile and states he would not want surgery regardless. Constitutional: no fever, no chills and no fatigue Respiratory: no cough and no dyspnea Cardiovascular: no chest pain and no palpitations Gastrointestinal: no abdominal pain, no nausea, no vomiting, no constipation and no diarrhea/loose stools Genitourinary (Male): no dysuria Integumentary: no rash Neurologic: + restless legs Psychiatric: no confusion and no hallucinations Physical Exam 2 Vital Signs (Past 24 Hours): Last Vital Signs Temp 36.9 C 03/15/18 11:33 Pulse 60 03/15/18 11:33 Resp 19 03/15/18 11:33 BP 156/76 H 03/15/18 11:33 Pulse Ox 97 03/15/18 11:33 Constitutional: well developed and well nourished; no acute distress Eyes: + anicteric sclerae and PERRL Neck: trachea midline Respiratory: normal respiratory effort, lungs clear to auscultation Cardiovascular: Rate/Rhythm: regular rate and regular rhythm Gastrointestinal (Abdomen): Inspection/Auscultation: normal bowel sounds Percussion/Palpation: abdomen soft; abdomen nontender Musculoskeletal: Head/Neck/Chest: normocephalic, head atraumatic and neck supple Skin: no rashes, warm and dry Neurologic: moves all extremities and awake Speech / Cognition: normal speech Motor/Sensory: + tremor (resting tremor of upper extremities; when trying to ambulate some tremulous movements of b/l lower legs; occ. has explosive-like movements as here nearly knocked the bedside table over) Coordination: + abnormal [id number] test (however also has poor vision which could be contributing) Psychiatric: A+Ox3, euthymic affect (as assessment continued got more distracted and difficult to redirect as he stated he wanted to walk to the cafeteria where his was) _ (1) Altered mental status Altered mental status type: unspecified Coma depth: Coma timing: Qualified Code(s): R41.82 - Altered mental status, unspecified (2) HTN (hypertension) Hypertension type: essential hypertension Qualified Code(s): I10 - Essential (primary) hypertension
[2018-03-15] MEDS: ATORVASTATIN 40 MG TAB PO SCH (21:28)
[2018-03-15] MEDS: BIMATOPROST 0.01% OP SOLN 2.5 ML BTL OP SCH (21:28)
[2018-03-16] MEDS: LEVOTHYROXINE SODIUM 88 MCG TABLET PO SCH (06:04)
[2018-03-16] MEDS: METOPROLOL TARTRATE 25 MG TAB PO SCH (07:42)
[2018-03-16] MEDS: BRINZOLAMIDE (AZOPT) OPS 10 ML BTL OP SCH ×2 (07:42→20:43)
[2018-03-16] MEDS: ASPIRIN 81 MG ECTAB PO SCH (07:42)
[2018-03-16] MEDS: BRIMONIDINE TARTRATE/TIMOLOL OP SCH ×2 (07:42→20:43)
[2018-03-16] MEDS ORDERED: OLANZAPINE ZYDIS 5 MG ORALLY DIS. TAB PO PRN (08:44)
--- NOTE | 2018-03-16 09:03 | Neurology Consultation ---
Date of Consultation March 16, 2018 Assessment & Plan (1) Altered mental status: The patient was admitted with a confusion/altered mental status. Today I am not convinced there is any encephalopathy or acute psychiatric problems. Currently, I believe this patient has a combination of short-term memory loss, very poor vision, and hearing loss. 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 His vision is so poor yet I believe he does not have the insight as to the fact that he can't see. I think he believes that he sees very well the. He reaches out and completely misses objects because of his vision. This is likely the source of people thinking he has visual hallucinations. His [id number] hearing loss adds to the perception of confusion as well. He has been on 81 milligram aspirin tablet for about 10 years. MRI of the brain showed no evidence of stroke acute or chronic (2) Tremor: Patient has an obvious postural and action tremor of mild to moderate nature in the upper extremities. I do not see any other signs of Parkinson's disease including no rigidity, cogwheeling, or bradykinesia. There is no dystonia, chorea, or ballistic movements that I can see today. I see no tics or myoclonic jerks today either. The etiology of the tremor is likely secondary to his cerebral vascular disease and advanced age. (3) Stenosis of left internal carotid artery: MR angiography revealed a 75-80 percent left internal carotid artery stenosis at the origin and less than 50 percent stenosis at the origin of the right internal carotid artery. 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 There is reconstitution of flow up by the basilar artery. Patient was seen by vascular surgery and there is no indication for procedure at this time. (4) Restless leg syndrome, uncontrolled: Patient has a significant restless leg syndrome problem. To him, this is his biggest problem. Because of his poor vision, he CT fall trying to get out of bed because of dealing with the restless leg sensations. Currently he is not on any medication for this. Recommendations: 1. Consider switching 81 milligram aspirin tablet daily 2 clopidogrel 75 milligrams daily. This could help prevent cerebral vascular disease and further stenosis of his carotids and vertebrals. 2. Because of his advanced age and lipid parameters, he is not a candidate for high-dose statins. 3. As an outpatient, we could consider treatment for his restless leg syndrome with the long-acting pramipexole or ropinirole. Clonazepam could be considered as well although I would be concerned about increased sedation. I prefer to initiate this as an outpatient and not during this hospitalization. 4. His dementia could be treated with Namenda or donepezil. Again, I would defer this to outpatient 5. Apparently his is not comfortable with caring for him at home anymore. A social service consult would be reasonable and we could consider a rehabilitation hospital stay for strengthening and balance. 6. The drug of choice for treating tremor would be propranolol. He is already on metoprolol. Any change would have to be cleared with Cardiology. As an outpatient we could discontinue metoprolol and initiate propranolol long-acting 60 milligrams once daily. This could then be titrated as needed. 7. He may have an underlying peripheral neuropathy due to age. This could affect his balance as well giving him a sensory ataxia. We could consider EMG and nerve conduction studies as an outpatient Overall, I spent a total of 105 minutes with this case including records review , review of MRI films, direct evaluation the patient at bedside, and discussion of the case with the patient, clinical staff, and Dr. Oswald including differential diagnosis and treatment options. History of Present Illness Reason for Consultation: Patient is an 87-year-old, who was asked to see the request of Dr. Oswald for neurologic consultation regarding confusion and other neurologic issues including abnormal involuntary movements. Requesting Physician: Dr. Oswald Attending Physician: Alexandru Oswald, History of Present Illness Patient has a longstanding history of hypertension and dyslipidemia. He had Titus's thyroiditis the past and has hypothyroidism on levothyroxine replacement currently. He is followed by his primary care physicians and Endocrinology. He has been on 81 milligram aspirin tablet daily since is 3 vessel coronary artery bypass graft in 2008 at [facility]. He is followed by Cardiology and seems to be fairly stable. He is also on metoprolol 25 milligrams daily Lipitor 40 milligrams daily for dyslipidemia. Patient has had significant vision problems for many years. He has open angle glaucoma. He had a right eye cataract surgery in [address] Solorzano. He had a left eye laser trabeculoplasty in 2013. Patient himself thinks his vision is fine. He has been living at home with his but has had increased confusion over the last week or 2. About 6 days ago (he believes it was 3 weeks ago) he fell out of bed trying to get up. He has restless leg syndrome which she believes this is worse problem the and he gets up sits on the edge and tries to get up to relieve this. He lost his balance and fell. Apparently did not get injured. There been reports of some visual hallucinations abnormal involuntary movements, tremor, and he has been more difficult to manage. His feels that she can't manage him anymore at home. Apparently his fluid intake has been worse recently as well. Patient came to the emergency room at 0910 on March 14 with a temperature 36.7 , pulse 106, respiratory rate 20, blood pressure 172/82, and O2 saturation [address] scan of the head was unremarkable. Chest x-ray shows some cardiomegaly but no acute changes. CBC was unremarkable and Chem profile was largely unremarkable as well. Urinalysis was negative and fasting lipid profile showed triglycerides 77, total cholesterol 127, and LDL 55. TSH, B12, and folate levels were all unremarkable. Lyme antibody titers were negative. In the ER, he was apparently oriented and showed no focal neurologic signs. After admission, there was concerns about myoclonic the other types of jerking of his limbs, visual hallucinations, and tremor. MRI of the brain showed marked generalized atrophy and moderate old small vessel ischemic changes with no acute changes or stroke. MR angiography of the head was unremarkable for any significant vascular anomalies. MR angiography of the neck revealed a 75 to 80 percent stenosis of the left internal carotid artery at the origin. On the right it was less than 50 percent. 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 Close reconstituted above this near the basilar artery. He has had no events or seizures. He has been in normal sinus rhythm in the 80s. He has no complaint of headache, other pain, weakness or numbness of a new nature, new vision problems, incontinence of urine, memory issues, or speech problems. He admits to having balance problems and his restless leg syndrome symptoms at night. He knows his vision isn't as good as before but thinks he is seeing reasonably well. Allergies Allergy/AdvReac Type Severity Reaction Status Date / Time Penicillins Allergy Severe ANAPHYLAXIS Verified 03/14/18 10:14 Home Medications Home Medications Medication Instructions Recorded Confirmed Type aspirin 81 mg PO QAM 03/14/18 03/14/18 History atorvastatin [Lipitor] 40 mg PO HS 03/14/18 03/14/18 History bimatoprost [Lumigan] 1 drp OPHTHALMIC (EYE) HS 03/14/18 03/14/18 History brimonidine-timolol [Combigan] 1 drp OPHTHALMIC (EYE) BID 03/14/18 03/14/18 History brinzolamide [Azopt] 1 drp OPHTHALMIC (EYE) BID 03/14/18 03/14/18 History levothyroxine 88 mcg PO QAM 03/14/18 03/14/18 History metoprolol tartrate 25 mg PO QAM 03/14/18 03/14/18 History Patient History Medical History CAD (coronary artery disease) (Chronic) HTN (hypertension) (Chronic) Hypothyroid (Chronic) HTN (hypertension) (Chronic) Carotid stenosis, bilateral Dementia Restless leg syndrome Tremor Surgical History S/P triple vessel bypass (Resolved) History of cataract surgery Family History Mother , in her 50s during an operation No problems noted. 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 Feels Safe at Home: Yes Safety Concerns: Feels Safe At This Time Smoking Status: Former smoker Tobacco Type: pipe and cigars Cigarettes per Day : Never Do You Dip or Chew Tobacco: No Smoking End Date: 1954 Second Hand Exposure: No Tobacco Cessation Education Requested by Patient: No Hx Alcohol Use: No Hx Substance Use: No Beliefs That Will Affect Care: None Preferred Language: Indonesian Communication Ability: Effective Visual Impairment: Severely Limited Hearing Ability: Hard of Hearing 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 Required: No Review of Systems Constitutional: no fever, no fatigue and no weakness Eyes: + worsening vision; no diplopia and no eye pain Ear, Nose, Mouth, Throat: + hearing loss; no ear pain, no tinnitus and no dysphagia Respiratory: no cough and no dyspnea Cardiovascular: no chest pain, no dyspnea and no palpitations Gastrointestinal: no abdominal pain, no nausea and no vomiting Genitourinary (Male): no dysuria, no urinary frequency and no urinary incontinence Musculoskeletal: no back pain, no neck pain, no radicular pain, no myalgia, no muscle weakness and no muscle atrophy Integumentary: no rash and no lesions Neurologic: + tremor(s); no gait abnormality, no falls, no localized weakness, no generalized weakness, no tingling, no numbness, no dizziness, no headache(s) , no abnormal speech, no behavioral changes, no confusion and no memory loss Psychiatric: + abnormal sleep pattern (Has restless leg syndrome, significant); no depression, no anxiety, no difficulty concentrating and no confusion Endocrine: no fatigue and no flushing Hematologic / Lymphatic: no easy bleeding and no easy bruising Allergy / Immunological: no urticaria Physical Exam 2 Vital Signs (Past 24 Hours): Last Vital Signs Temp 36.9 C 03/16/18 08:03 Pulse 84 03/16/18 08:03 Resp 18 03/16/18 08:03 BP 158/79 H 03/16/18 08:03 Pulse Ox 96 03/16/18 08:03 Physical Exam: The patient is right-handed. The patient is awake, alert, and attentive. Speech is normal without any aphasia or dysarthria, although he has no teeth in currently. The patient is oriented to name, age, month, day of the week, and year. He did not know the date ( or ) and did not know where he was. He thought this was home. He was very pleasant and cooperative. Mood and affect are normal and appropriate. General appearance and grooming are normal. Long-term memory was quite intact giving me significant details regarding a past history including dates of medical the procedures which I could verify but he did have some short-term memory. I did not detect any significant auditory or visual hallucinations and he did not have any psychosis or significant anxiety or depression. He was mild to moderately hard of hearing which cause me to repeat questions, in order for him to clarify or answer. The discs are sharp with positive venous pulsations bilaterally. There are no exudates, hemorrhages, or blood vessel changes seen. Pupils are 3 mm bilaterally and reactive to light. Extraocular eye muscles are intact without nystagmus. Visual roper close up seem normal, however I believe his visual acuity is quite poor in almost all directions bilaterally. He was having trouble seeing numbers of fingers (guessing) the at 2 feet. He would reach out for an object and miss it needing a couple of times to get it. I do not believe he was ataxic as much as he thought he could see but actually was not seeing the object he was reaching for. There are no deficits to sensation in the face in all 3 distributions of the fifth cranial nerve bilaterally. Corneal reflexes are positive bilaterally. Facial strength and symmetry was normal bilaterally. Hearing seems mild to moderately decreased bilaterally. Palate moves well without asymmetry. There is normal sternocleidomastoid and trapezius (shoulder shrug) strength bilaterally. Tongue is midline with good strength bilaterally. There was no facial twitching or abnormal involuntary movements. Neck has a full range of motion without discomfort. There are no cervical bruits bilaterally. There are no cranial or ocular bruits. Heart is without murmur. There is a regular rhythm and rate. Cervical, thoracic, and lumbar spine are nontender to palpation. Gait was not tested today but he uses a walker and is slow and cautious. Stance sitting up in bed is good. With outstretched arms there is no drift. There are no resting tremors bilaterally. There is no obvious ataxia with finger to nose testing, but he could missed the target initially because of poor vision. When I brought my finger into arrange he could see better he hit the target. He has mild postural and action tremor of the upper extremities bilaterally. There is reasonable facility in the hands. No other abnormal involuntary movements are noted, including no myoclonic jerks, ballistic movements, chorea, or dystonia. Motor strength is 5/5 diffusely in the arms bilaterally including deltoids, biceps, triceps, brachioradialis, wrist flexors and extensors, sewer separation designer, and intrinsic hand muscles. Motor strength is 5/5 diffusely in the legs bilaterally including hip flexors, quadriceps, hamstrings, gastrocnemius, tibialis anterior , tibialis posterior, and Peroneii muscles bilaterally. Toe extensors are normal and there is good bulk in the extensor digitorum brevis muscles bilaterally. He was not particularly bradykinetic in general. The limbs have good tone without rigidity or spasticity. There is no atrophy noted in the muscles. Muscle bulk is normal, there is no tenderness to palpation , no myotonia to percussion, and no fasciculations seen. Sensory examination is intact to touch and pin throughout all 4 limbs diffusely. Reflexes are 1/4 in the biceps, triceps, brachioradialis, and quadriceps tendons bilaterally. Achilles tendon reflexes were absent bilaterally. Toes are downgoing with plantar stimulation bilaterally. Peripheral pulses are present and of normal quality distally in all 4 limbs. There is no peripheral edema noted in the limbs. Results & Data Diagnostic Findings MRI OF THE BRAIN COMBO CLINICAL HISTORY: Change in mental status. COMPARISON STUDY: CT of the brain dated 03/14/2018. TECHNIQUE: MRI of the brain was performed utilizing various T1 and T2-weighted sequences in the axial, sagittal, and coronal planes. Contrast-enhanced sequences were acquired following the administration of 8 cc of Gadavist. FINDINGS: Brain parenchyma: There are age-related involutional changes noting moderate subcortical and periventricular microangiopathic disease. There is no hemorrhage or mass effect. There is no restricted diffusion to suggest acute ischemia. No enhancing mass lesion is identified on the postcontrast images. Loya-white matter differentiation is preserved. No extra-axial fluid collection is seen. The cerebellar tonsils are normal in configuration. Ventricles, sulci, and cisterns: Prominent secondary to involutional change. Pituitary and sella: Unremarkable. Intracranial vasculature: There is loss of the left vertebral artery flow void below the skull base. There remaining flow-voids at the skull base are maintained. Orbits: The bony orbits are grossly intact. Orbital contents are normal in appearance, noting bilateral ocular lens implants. Sinuses and mastoids: There is trace mucosal thickening in the left maxillary antrum. The remaining paranasal sinuses and the mastoid air cells are clear. Calvarium: Unremarkable. Cervical cord: Partially visualized cervical spinal cord is normal in morphology and signal intensity. IMPRESSION: 1. There is no hemorrhage, enhancing mass, or evidence of acute ischemia. 2. There is loss of the left vertebral artery flow void below the skull base. Electronically signed by: Paolo Bill M.D. 03/14/2018 3:25 PM MR ANGIOGRAM OF THE NECK COMBO CLINICAL HISTORY: Change in mental status. COMPARISON STUDY: MR angiogram of the brain performed concurrently on 03/14/2018. TECHNIQUE: Axial 3-D [id number] MR angiography of the neck is performed. Subsequently, following the IV administration of 8 cc of Gadavist. Coronal MR angiogram of the neck was performed to corroborate the findings. 3-D reformats are created and assessed. All measurements were calculated based on NASCET criteria. FINDINGS: Visualized portions of the thoracic aorta are normal in caliber. The aortic arch demonstrates standard 3-vessel anatomy. The subclavian arteries are widely patent bilaterally. The right common carotid artery is widely patent. There is atherosclerotic irregularity with less than 50% stenosis at the origin of the right internal carotid artery. The remainder of the right internal carotid artery is widely patent, as is the right external carotid artery. The left common carotid artery is widely patent. There is high-grade (greater than 75%) stenosis at the origin of the left internal carotid artery. The remainder of the left internal carotid artery is widely patent, as is the left external carotid artery. The right vertebral artery is widely patent and dominant. 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 This is reconstituted at the skull base. The visualized intracranial vessels at the skull base are otherwise patent. IMPRESSION: 1. There is a short segment of high-grade (greater than 75%) stenosis at the origin of the left internal carotid artery. 2. There is less than 50% luminal narrowing at the origin of the right internal carotid artery secondary to atherosclerotic plaque and irregularity. 3. The carotid arteries are otherwise patent. 4. 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 This is reconstituted at the skull base. Electronically signed by: Paolo Bill M.D. 03/14/2018 3:22 PM _ (1) Altered mental status Altered mental status type: unspecified Coma depth: Coma timing: Qualified Code(s): R41.82 - Altered mental status, unspecified
--- NOTE | 2018-03-16 17:07 | Hospitalist Progress Note ---
Date of Service March 16, 2018 Assessment & Plan (1) Altered mental status: - No acute findings have been discovered to explain changes in mentation. Likely due to hospital admission this is exacerbating some of the delirium - appears this is a progressive decline but acutely worsened around Aaron - exhibiting paranoid thinking, ataxic movements, balance issues, hallucinations; MRI negative for CVA but evidence of chronic vascular changes/atrophy - He has mostly been sleeping during my visits today as he was up through the night - He was exhibiting some hypersexual tendencies today and also more combativeness and throwing his breakfast tray - He was evaluated by neurology which reports his long-term memory is very good but having issues with short-term, as well as multiple sensory losses - Will send for RPR testing and B1 - Can utilize 1:1 when needed but can be driven by nursing assessment - Pt did remove IV line and can hold obtaining new access at this time - Recommend to avoid benzodiazepines but may need Haldol IM if combativeness or agitation becomes threatening to safety - Will start a low dose Seroquel at 12.5 mg HS which may help with sleeping and night-time agitation as discussed with family he has had chronic sleep disturbances and he does get more altered into the evenings even at home - Neurology consulted - question that this may be vascular dementia that is worsened by his sensory deficits - consideration for outpatient initiation of some medications for dementia/RLS Present on Admission?: Yes (2) Stenosis of left internal carotid artery: - MRA shows > 75% stenosis at the origin of the L ICA and < 50% luminal narrowing of R ICA; also reveals age-indeterminant thrombosis of the L vertebral artery that is reconstituted at skull base - Vascular consulted - no intervention at this time - can re-evaluate pending improvement in mentation - When discussed with the patient on 03/15 he reports he knew about his carotid stenosis and reports he wouldn't want surgery regardless because of his age and the risk (3) Elevated troponin: - Troponins peaked at 0.123 and trending down - T wave inversions remain - Reports no CP or SOB; Has a H/O CABG - Echo - EF 65-70%; no regional wall motion abnormalities - ASA 81 mg daily; Atorvastatin 40 mg daily; Metoprolol 25 mg daily (4) Fall: - Patient reports this was mechanical as he has RLS and was trying to get out of bed but got tangled in his bedding. confirms fall but states he more rolled out of bed then had a direct fall - He clearly does exhibit some tremulous movements and given his poor vision this is likely multifactorial - it does not appear that falls are frequent - PT/OT ordered - appreciate continued assessment (5) HTN (hypertension): - Metoprolol 25 mg daily (6) CAD (coronary artery disease): - H/O CABG - ASA 81 mg daily; Atorvastatin 40 mg daily; Metoprolol 25 mg daily (7) Hypothyroid: - TSH WNL - Levothyroxine 88 mcg daily (8) DVT prophylaxis: SCDs Disposition: Discussed with family about acute rehab; Appreciate Neurology assessment Subjective Patient was noted to get very combative this morning. He thought he was at home and wanted to get up to shower. He ultimately threw his breakfast tray and was swinging at staff. During my visit he is calm and falling asleep. Was not given any medication for sedation but was up frequently through the night. Family states he has had chronic issues with insomnia. He has been exhibiting some hypersexual tendencies today. also confirms that he has been slowly getting more aggressive at home when he has these moments but states he will almost just snap out of them Had a long discussion with family and case management today as they do not feel that it would be safe to return to there current arrangement. Referrals placed and will await approval. Daughter is POA and family has talked with patient but he is having only intermittent lucid moments at this point. Review of Systems Unobtainable due to cognitive status Physical Exam 2 Vital Signs (Past 24 Hours): Last Vital Signs Temp 36.8 C 03/16/18 13:12 Pulse 66 03/16/18 13:12 Resp 18 03/16/18 13:12 BP 150/75 H 03/16/18 13:12 Pulse Ox 97 03/16/18 13:12 Constitutional: well developed and well nourished; no acute distress and not ill appearing Respiratory: normal respiratory effort, lungs clear to auscultation Cardiovascular: Rate/Rhythm: regular rate and regular rhythm Gastrointestinal (Abdomen): Inspection/Auscultation: normal bowel sounds Percussion/Palpation: abdomen soft; abdomen nontender Skin: no rashes, warm and dry Psychiatric: Orientation: alert (but easily falling asleep on examination) _ (1) Altered mental status Altered mental status type: unspecified Coma depth: Coma timing: Qualified Code(s): R41.82 - Altered mental status, unspecified (2) HTN (hypertension) Hypertension type: essential hypertension Qualified Code(s): I10 - Essential (primary) hypertension
[2018-03-16] MEDS: BIMATOPROST 0.01% OP SOLN 2.5 ML BTL OP SCH (20:41)
[2018-03-16] MEDS: QUETIAPINE FUMARATE 25 MG TABLET PO SCH (20:43)
[2018-03-16] MEDS: ATORVASTATIN 40 MG TAB PO SCH (20:43)
[2018-03-17] MEDS: LEVOTHYROXINE SODIUM 88 MCG TABLET PO SCH (05:38)
[2018-03-17 07:01] LABS: Hematocrit (blood only) 39.9 % (42-52); Hemoglobin 13.6 g/dL (14.0-18.0); Mean Corpuscular Hgb Conc 34.1 g/dL (32-36); Mean Corpuscular Volume 94.5 fL (80-100); Mean Platelet Volume 10.6 fL (7.4-10.4); Platelet Count 211 K/uL (130-400); RDW Coefficient of Variation 13.2 % (11.5-14.5); RDW Standard Deviation 45.9 fL (36.4-46.3); Red Blood Count 4.22 M/uL (4.7-6.1)
[2018-03-17] MEDS: METOPROLOL TARTRATE 25 MG TAB PO SCH (07:26)
[2018-03-17] MEDS: ASPIRIN 81 MG ECTAB PO SCH (07:26)
[2018-03-17] MEDS: BRINZOLAMIDE (AZOPT) OPS 10 ML BTL OP SCH ×2 (07:27→20:43)
[2018-03-17] MEDS: BRIMONIDINE TARTRATE/TIMOLOL OP SCH ×2 (07:27→20:43)
[2018-03-17 07:28] LABS: BUN Creatinine Ratio 18.6 (10-20); Calcium 8.6 mg/dl (8.5-10.1); Creatinine Clr Calc Pharmacy 43.8 ml/min; Est GFR (African American) 57.5; Est GFR (Non-African American) 49.6; Potassium 3.5 mmol/L (3.5-5.1)
[2018-03-17] MEDS ORDERED: POLYETHYLENE (MIRALAX) 17 GM PACK PO PRN (08:56)
--- NOTE | 2018-03-17 14:07 | Hospitalist Progress Note ---
Date of Service March 17, 2018 Assessment & Plan (1) Altered mental status: - No acute findings have been discovered to explain changes in mentation. More lucid today but tries to redirect questions instead of answering questions about the hospital stay. States he almost called 911 because there were people in his room talking to him and turning on lights at night. When asked if he was referring to nursing staff he stated that these people were not really there and maybe aware of some hallucinations? States he would call 911 if this happens again only because the police will be the only ones to help and could not redirect him from this topic. - There has been a progressive decline in mentation but acutely worsened around [place] - exhibiting paranoid thinking, initially ataxic movements, balance issues, hallucinations; MRI negative for CVA but evidence of chronic vascular changes/atrophy - He has exhibited some hypersexual tendencies during admission and also more combativeness and throwing his breakfast tray - He was evaluated by neurology which reports his long-term memory is very good but having issues with short-term, as well as multiple sensory losses - RPR and B1 pending; ammonia WNL - 1:1 has been removed and will continue to closely monitor; Pt did remove IV line and can hold obtaining new access at this time - Recommend to avoid benzodiazepines but may need Haldol IM if combativeness or agitation becomes threatening to safety - Seems to be tolerating Seroquel 12.5 mg HS at this time without AM sedation - Neurology consulted - discussed with Dr. 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 - Vascular consulted - no intervention at this time - can re-evaluate pending improvement in mentation - When discussed with the patient on 03/15 he reports he knew about his carotid stenosis and reports he wouldn't want surgery regardless because of his age and the risk - Convert from ASA to Plavix 75 mg daily Present on Admission?: Yes (3) Elevated troponin: - Troponins peaked at 0.123 and trended down - T wave inversions on EKG; No chest pain or SOB - Reports no CP or SOB; Has a H/O CABG - Echo - EF 65-70%; no regional wall motion abnormalities - Plavix 75 mg daily; Atorvastatin 40 mg daily; Metoprolol 25 mg daily (4) Fall: - Patient reports this was mechanical as he has RLS and was trying to get out of bed but got tangled in his bedding. confirms fall but states he more rolled out of bed then had a direct fall - He clearly does exhibit some tremulous movements and given his poor vision this is likely multifactorial - it does not appear that falls are frequent - PT/OT ordered - appreciate continued assessment (5) HTN (hypertension): - Metoprolol 25 mg daily (6) CAD (coronary artery disease): - H/O CABG - Plavix 75 mg daily; Atorvastatin 40 mg daily; Metoprolol 25 mg daily (7) Hypothyroid: - TSH WNL - Levothyroxine 88 mcg daily (8) DVT prophylaxis: SCDs Disposition: Planning on possible [facility] on Thursday Subjective Patient had a good evening and has been awake and oriented this AM on my examination. He states that he is ready to return home. Had a long discussion with patient about the events of his stay and the concern for safety in the home. He states that he can guarantee that he did not have moments when he was not acting himself. However when asked if he remembers events of this hospital stay he kept trying to redirect the question such as saying "depends on what you are talking about" instead of directly answering. He then stated that he did notice that people were in his room and talking to him. When I asked if he meant nursing staff he said "no, these people were not really there" He states he was planning on calling 911. When trying to tell him that if this would happen again to let us know but kept insisting that only the police would be able to help him. He then stated he would tell his daughter about this event later and then stated he was done talking to me. He said he would think about rehab as family did express their concerns with him about safety for him and his . Constitutional: no fever, no chills and no fatigue Eyes: no worsening vision Respiratory: no cough and no dyspnea Cardiovascular: no chest pain Gastrointestinal: + constipation; no abdominal pain, no nausea, no vomiting and no diarrhea/loose stools Musculoskeletal: no body aches Integumentary: no rash Psychiatric: + abnormal sleep pattern Physical Exam 2 Vital Signs (Past 24 Hours): Last Vital Signs Temp 36.5 C 03/17/18 07:23 Pulse 76 03/17/18 07:23 Resp 18 03/17/18 07:23 BP 150/74 H 03/17/18 07:23 Pulse Ox 94 03/17/18 07:23 Constitutional: well developed and well nourished; no acute distress and not ill appearing Eyes: + anicteric sclerae and PERRL Neck: trachea midline Respiratory: normal respiratory effort, lungs clear to auscultation Cardiovascular: Rate/Rhythm: regular rate and regular rhythm Gastrointestinal (Abdomen): Inspection/Auscultation: normal bowel sounds Percussion/Palpation: abdomen soft; abdomen nontender Musculoskeletal: Head/Neck/Chest: normocephalic, head atraumatic and neck supple Skin: no rashes, warm and dry Neurologic: moves all extremities and awake Speech / Cognition: normal speech Motor/Sensory: + tremor (no visualized tremor during my visit the morning) Coordination: + abnormal [id number] test (however also has poor vision which could be contributing) Psychiatric: A+Ox3, euthymic affect (as assessment continued got more distracted and difficult to redirect as he stated he wanted to walk to the cafeteria where his was) Orientation: alert (but easily falling asleep on examination) _ (1) Altered mental status Altered mental status type: unspecified Coma depth: Coma timing: Qualified Code(s): R41.82 - Altered mental status, unspecified (2) HTN (hypertension) Hypertension type: essential hypertension Qualified Code(s): I10 - Essential (primary) hypertension
[2018-03-17] MEDS: QUETIAPINE FUMARATE 25 MG TABLET PO SCH (20:42)
[2018-03-17] MEDS: BIMATOPROST 0.01% OP SOLN 2.5 ML BTL OP SCH (20:43)
[2018-03-17] MEDS: ATORVASTATIN 40 MG TAB PO SCH (20:44)
[2018-03-18] MEDS: LEVOTHYROXINE SODIUM 88 MCG TABLET PO SCH (05:41)
[2018-03-18] MEDS: METOPROLOL TARTRATE 25 MG TAB PO SCH (10:32)
[2018-03-18] MEDS: CLOPIDOGREL BISULFATE 75 MG TAB PO SCH (10:32)
[2018-03-18] MEDS: BRIMONIDINE TARTRATE/TIMOLOL OP SCH ×2 (10:33→20:54)
[2018-03-18] MEDS: BRINZOLAMIDE (AZOPT) OPS 10 ML BTL OP SCH ×2 (10:33→20:53)
[2018-03-18] MEDS: POLYETHYLENE (MIRALAX) 17 GM PACK PO SCH (10:34)
--- NOTE | 2018-03-18 15:16 | Hospitalist Progress Note ---
Date of Service March 18, 2018 Assessment & Plan (1) Altered mental status: - No acute findings have been discovered to explain changes in mentation. Labs unremarkable; Ammonia WNL; RPR non-reactive; TSH WNL; B12 WNL; Lyme neg; UA unremarkable/no signs of infection; MRI negative for CVA; B1 is pending - Mini-mental exam initially on exam - scored 19 with high school eduction - suggesting moderate to severe cognitive impairment - Also exhibits sensory losses of vision and hearing however he denies both. However when you has him to grab something her had the tendency to miss the target - Having periods of lucidity but then can easily exhibit paranoid thinking ( having an affair/needing to call police). Today states he felt that he needed to call 911 but was using the TV remote to do this. He also revealed that he thought he was having hallucinations the other night and was planning on calling 911. States he doesn't want to follow up with neurology due to his having issues with other doctors. He will try and redirect questions to avoid answering them. Earlier in the admission he displayed some hypersexual tendencies. Was also exhibiting some ballistic/ataxic like movements on admission however these have since stopped - There has been a progressive decline in mentation but acutely worsened around [place] - He was evaluated by neurology which reports his long-term memory is very good but having issues with short-term, as well as multiple sensory losses - Started Seroquel 12.5 mg HS which he has been on for approx. 2 days now which has have decrease his initial combativeness but still having some sundowning moments. Does not appear to be experiencing too much sedation in the AM but will need to watch. 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 - Vascular consulted - no intervention at this time - can re-evaluate pending improvement in mentation - When discussed with the patient on 03/15 he reports he knew about his carotid stenosis and reports he wouldn't want surgery regardless because of his age and the risk - Convert from ASA to Plavix 75 mg daily Present on Admission?: Yes (3) Elevated troponin: - Troponins peaked at 0.123 and trended down - T wave inversions on EKG; No chest pain or SOB - Reports no CP or SOB; Has a H/O CABG - Echo - EF 65-70%; no regional wall motion abnormalities - Plavix 75 mg daily; Atorvastatin 40 mg daily; Metoprolol 25 mg daily Present on Admission?: Yes (4) Fall: - Patient reports this was mechanical as he has RLS and was trying to get out of bed but got tangled in his bedding. confirms fall but states he more rolled out of bed then had a direct fall - He clearly does exhibit some tremulous movements at times and given his poor vision this is likely multifactorial - it does not appear that falls are frequent - PT/OT ordered - appreciate continued assessment Present on Admission?: Yes (5) HTN (hypertension): - Metoprolol 25 mg daily Present on Admission?: Yes (6) CAD (coronary artery disease): - H/O CABG - Plavix 75 mg daily; Atorvastatin 40 mg daily; Metoprolol 25 mg daily Present on Admission?: Yes (7) Hypothyroid: - TSH WNL - Levothyroxine 88 mcg daily Present on Admission?: Yes (8) DVT prophylaxis: SCDs Disposition: Planning on possible [facility] on Thursday Subjective Patient was a little more confused this AM but quickly improved after further sleep and has been calm and cooperative. When talking with the patient he wasn't as conversant as he was eating lunch. Stated he was feeling ok and was enjoying lunch. Just stated that I can talk with his and daughter when they come back. Discussed with them earlier before visiting the patient and they are viewing [facility] today with plans to transition there tomorrow. Constitutional: no fever and no chills Respiratory: no cough and no dyspnea Cardiovascular: no chest pain Gastrointestinal: no abdominal pain, no nausea, no vomiting, no constipation and no diarrhea/loose stools Genitourinary (Male): no dysuria Musculoskeletal: no body aches Physical Exam 2 Vital Signs (Past 24 Hours): Last Vital Signs Temp 36.4 C L 03/18/18 14:52 Pulse 64 03/18/18 14:52 Resp 18 03/18/18 14:52 BP 123/77 03/18/18 14:52 Pulse Ox 96 03/18/18 14:52 Constitutional: well developed and well nourished; no acute distress and not ill appearing Eyes: + anicteric sclerae and PERRL Neck: trachea midline Respiratory: normal respiratory effort, lungs clear to auscultation Cardiovascular: Rate/Rhythm: regular rate and regular rhythm Gastrointestinal (Abdomen): Inspection/Auscultation: normal bowel sounds Percussion/Palpation: abdomen soft; abdomen nontender Musculoskeletal: Head/Neck/Chest: normocephalic, head atraumatic and neck supple Skin: no rashes, warm and dry Neurologic: moves all extremities and awake Speech / Cognition: normal speech Psychiatric: Orientation: alert and oriented x 3 _ (1) Altered mental status Altered mental status type: unspecified Coma depth: Coma timing: Qualified Code(s): R41.82 - Altered mental status, unspecified (2) HTN (hypertension) Hypertension type: essential hypertension Qualified Code(s): I10 - Essential (primary) hypertension
[2018-03-18] MEDS: BIMATOPROST 0.01% OP SOLN 2.5 ML BTL OP SCH (20:53)
[2018-03-18] MEDS: QUETIAPINE FUMARATE 25 MG TABLET PO SCH (20:54)
[2018-03-18] MEDS: ATORVASTATIN 40 MG TAB PO SCH (20:54)
[2018-03-19] MEDS: LEVOTHYROXINE SODIUM 88 MCG TABLET PO SCH (05:51)
[2018-03-19 08:08] VITALS: BP 130/81; TEMP 97.5; O2SAT 97
[2018-03-19] MEDS: CLOPIDOGREL BISULFATE 75 MG TAB PO SCH (08:33)
[2018-03-19] MEDS: METOPROLOL TARTRATE 25 MG TAB PO SCH (08:33)
[2018-03-19] MEDS: POLYETHYLENE (MIRALAX) 17 GM PACK PO SCH (08:33)
[2018-03-19] MEDS: BRINZOLAMIDE (AZOPT) OPS 10 ML BTL OP SCH (08:33)
[2018-03-19] MEDS: BRIMONIDINE TARTRATE/TIMOLOL OP SCH (08:34)
[2018-03-19 12:31] VITALS: PULSE 82
--- NOTE | 2018-03-19 16:35 | Discharge Summary ---
Date of Service March 19, 2018 Admission HPI Per Admitting Provider Chief Complaint: 87 y/o M who was brought to the ED by family for c/o AMS. and daughter state that pt has not been himself since around [place]. states that pt is "delusional". Both and daughter are having a difficult time stating what exactly is altered about the pt other than he is accusing his of things she has not done, such as having an affair. states that pt has been moving around at night thinking that dreams are real. She states she finds him standing near her bed and that one night he sat down on her bed and she noted his lips were white and he wasn't breathing until she started rubbing his back. They state that pt is eating and taking his medications appropriately. He has no episodes of word finding issues although things that he says happened are not happening. Pt fell out of bed on Thursday. He states he was dreaming and tried to get out of bed, but was tangled in the sheets and fell. He denies LOC. He states this happened about once before, several months ago. No other falls. Pt does not feel that anything is wrong. He states that his family is "making things up". Pt denies fever, SOB, chest pain, abd pain, n/v/c/d, LE pain or swelling. Family states he has had no other specific complaints. Pt and used to live in [place] and had dogs. They had several tick infestations during their time there. feels she cannot manage pt at home in his current state. They went to PCP office yesterday during walk-in hours, but no specific issue was identified for further tx at that time. Principal Diagnosis Vascular Dementia with Behavioral Disturbances Discharge Exam Refused physical exam. When placing hand on his R arm when talking to him he stated "watch your hand and move it" Constitutional well developed and well nourished; no acute distress, not ill appearing and + uncooperative (mildly agitated - refused examination) Eyes + anicteric sclerae Neck trachea midline Respiratory normal respiratory effort Musculoskeletal Head/Neck/Chest: normocephalic and head atraumatic Skin no rashes, warm and dry Neurologic moves all extremities and awake Speech / Cognition: normal speech Motor/Sensory: + tremor Psychiatric Orientation: alert and oriented to person Eye Contact: good eye contact Motor Behavior: + tremor Speech: normal rate/rhythm/volume of speech Affect: + flat affect Mood: + irritable mood Thought Content: + delusions Insight: + poor insight Judgement: + poor judgement Discharge Data Allergies Allergy/AdvReac Type Severity Reaction Status Date / Time Penicillins Allergy Severe ANAPHYLAXIS Verified 03/14/18 10:14 Consultations 03/14/18 18:05 Consult Vascular Surgery Routine 03/15/18 15:15 Consult Neurology Routine Ordered Studies MR ANGIOGRAM OF THE BRAIN FINDINGS: The internal carotid arteries are widely patent bilaterally, as are the anterior and middle cerebral arteries. The right vertebral artery and the basilar artery are widely patent, as are the posterior cerebral arteries. There is loss of the left vertebral artery flow void at the skull base. Flow is shown within the distal left vertebral artery below the basilar. The right vertebral artery is dominant. There is no aneurysm or high-grade stenosis seen throughout the intracranial circulation. The brain parenchyma is normal as visualized. IMPRESSION: 1. There is loss of the left vertebral artery flow void at the skull base. This could be related to occlusion, slow flow, or reversal of flow. The left vertebral artery flow void is reconstituted below the basilar artery. See report of the pending contrast-enhanced MR angiogram of the neck for further details. 2. Otherwise unremarkable MR angiogram of the brain. The remaining intracranial vessels are widely patent. MR ANGIOGRAM OF THE NECK COMBO FINDINGS: Visualized portions of the thoracic aorta are normal in caliber. The aortic arch demonstrates standard 3-vessel anatomy. The subclavian arteries are widely patent bilaterally. The right common carotid artery is widely patent. There is atherosclerotic irregularity with less than 50% stenosis at the origin of the right internal carotid artery. The remainder of the right internal carotid artery is widely patent, as is the right external carotid artery. The left common carotid artery is widely patent. There is high-grade (greater than 75%) stenosis at the origin of the left internal carotid artery. The remainder of the left internal carotid artery is widely patent, as is the left external carotid artery. The right vertebral artery is widely patent and dominant. 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 This is reconstituted at the skull base. The visualized intracranial vessels at the skull base are otherwise patent. IMPRESSION: 1. There is a short segment of high-grade (greater than 75%) stenosis at the origin of the left internal carotid artery. 2. There is less than 50% luminal narrowing at the origin of the right internal carotid artery secondary to atherosclerotic plaque and irregularity. 3. The carotid arteries are otherwise patent. 4. 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 This is reconstituted at the skull base. MRI OF THE BRAIN COMBO FINDINGS: Brain parenchyma: There are age-related involutional changes noting moderate subcortical and periventricular microangiopathic disease. There is no hemorrhage or mass effect. There is no restricted diffusion to suggest acute ischemia. No enhancing mass lesion is identified on the postcontrast images. Loya-white matter differentiation is preserved. No extra-axial fluid collection is seen. The cerebellar tonsils are normal in configuration. Ventricles, sulci, and cisterns: Prominent secondary to involutional change. Pituitary and sella: Unremarkable. Intracranial vasculature: There is loss of the left vertebral artery flow void below the skull base. There remaining flow-voids at the skull base are maintained. Orbits: The bony orbits are grossly intact. Orbital contents are normal in appearance, noting bilateral ocular lens implants. Sinuses and mastoids: There is trace mucosal thickening in the left maxillary antrum. The remaining paranasal sinuses and the mastoid air cells are clear. Calvarium: Unremarkable. Cervical cord: Partially visualized cervical spinal cord is normal in morphology and signal intensity. IMPRESSION: 1. There is no hemorrhage, enhancing mass, or evidence of acute ischemia. 2. There is loss of the left vertebral artery flow void below the skull base. Hospital Course (1) Altered mental status: - No acute findings have been discovered to explain changes in mentation. Labs unremarkable; Ammonia WNL; RPR non-reactive; TSH WNL; B12 WNL; Lyme neg; UA unremarkable/no signs of infection; MRI negative for CVA; B1 is pending - Mini-mental exam initially on exam - scored 19 with high school education - suggesting moderate to severe cognitive impairment - Also exhibits sensory losses of vision and hearing however he denies both. However when you ask him to grab something he has the tendency to miss the target - Having periods of lucidity but then can easily exhibit paranoid thinking ( having an affair/needing to call police). He has increasingly talked about wanted to call the police but has been seen trying to use the television remote to do this. This AM he stated he needed to call them because his cellphone and two remote controls were stolen and new he wasn't at home but stated "can you tell me the actual name of this place". These episodes are more prevalent at night and special education professional but can sporadically occur mid-day. He also revealed that he thought he was having hallucinations the other night and was planning on calling 911. States he doesn't want to follow up with neurology due to his having issues with other doctors and exhibited some paranoid thinking in regards to seeing doctors. He will try and redirect questions to avoid answering them. Earlier in the admission he displayed some hypersexual tendencies (masturbating). Was also exhibiting some ballistic/ataxic like movements on admission however these have since stopped but still has some evidence of a tremor and some RLS - There has been a progressive decline in mentation per family report but acutely worsened around [place] - He was evaluated by neurology which reports his long-term memory is very good but having issues with short-term, as well as multiple sensory losses - Started Seroquel 12.5 mg HS which he has been on for approx. 3 days now which has decreased his initial combativeness but still having some sundowning moments. Does not appear to be experiencing too much sedation in the AM but will need to watch. As well, these medications can increase stroke risk in the elderly - Recommend to avoid benzodiazepines but may need Haldol IM if combativeness or agitation becomes threatening to safety; Also had Zyprexa 2.5 mg PRN ordered but did not need to use this - Neurology consulted - suspect this is a vascular dementia with sensory losses contributing to his hallucinations - recommend outpatient F/U (if patient will agree) - recommended to convert ASA to Plavix (2) Stenosis of left internal carotid artery: - MRA shows > 75% stenosis at the origin of the L ICA and < 50% luminal narrowing of R ICA; also reveals age-indeterminant thrombosis of the L vertebral artery that is reconstituted at skull base - Vascular consulted - no intervention at this time - can re-evaluate pending improvement in mentation - When discussed with the patient on 03/15 he reports he knew about his carotid stenosis and reports he wouldn't want surgery regardless because of his age and the risk - Convert from ASA to Plavix 75 mg daily (3) Elevated troponin: - Troponins peaked at 0.123 and trended down - No chest pain or SOB; history of CABG - Echo - EF 65-70%; no regional wall motion abnormalities - Plavix 75 mg daily; Atorvastatin 40 mg daily; Metoprolol 25 mg daily (4) Fall: - Patient reports this was mechanical as he has RLS and was trying to get out of bed but got tangled in his bedding. confirms fall but states he more rolled out of bed then had a direct fall - He clearly does exhibit some tremulous movements at times and given his poor vision this is likely multifactorial - it does not appear that falls are frequent - Used Requip in the past without improvement of symptoms (5) HTN (hypertension): - Metoprolol 25 mg daily (6) CAD (coronary artery disease): - H/O CABG - Plavix 75 mg daily; Atorvastatin 40 mg daily; Metoprolol 25 mg daily (7) Hypothyroid: - TSH WNL - Levothyroxine 88 mcg daily Total Time Total Time Spent Total Time Spent (In Minutes): Greater than 30 minutes Discharge Plan Discharge Items Patient Disposition: Transfer [facility] Fac Reason For Visit: AMS Discharge Diagnosis: Vascular Dementia with Behavioral Disturbances Discharge Goals: Decrease discomfort, Improve function and Increase independence Activity: Resume your previous activity Non-emergency contact: Primary Care Provider Call non-emergency contact if: you have any medication questions, your symptoms worsen and you have a fever Diet: Regular Addtl Provider Instructions: Altered mental status: - No acute findings have been discovered to explain changes in mentation. Labs unremarkable; Ammonia WNL; RPR non-reactive; TSH WNL; B12 WNL; Lyme neg; UA unremarkable/no signs of infection; MRI negative for CVA; B1 is pending - Mini-mental exam initially on exam - scored 19 with high school education - suggesting moderate to severe cognitive impairment - Also exhibits sensory losses of vision and hearing however he denies both. However when you ask him to grab something he has the tendency to miss the target - Having periods of lucidity but then can easily exhibit paranoid thinking ( having an affair/needing to call police). He has increasingly talked about wanted to call the police but has been seen trying to use the television remote to do this. This AM he stated he needed to call them because his cellphone and two remote controls were stolen and new he wasn't at home but stated "can you tell me the actual name of this place". These episodes are more prevalent at night and special education professional but can sporadically occur mid-day. He also revealed that he thought he was having hallucinations the other night and was planning on calling 911. States he doesn't want to follow up with neurology due to his having issues with other doctors and exhibited some paranoid thinking in regards to seeing doctors. He will try and redirect questions to avoid answering them. Earlier in the admission he displayed some hypersexual tendencies (masturbating). Was also exhibiting some ballistic/ataxic like movements on admission however these have since stopped but still has some evidence of a tremor and some RLS - There has been a progressive decline in mentation per family report but acutely worsened around [place] - He was evaluated by neurology which reports his long-term memory is very good but having issues with short-term, as well as multiple sensory losses - Started Seroquel 12.5 mg HS which he has been on for approx. 3 days now which has decreased his initial combativeness but still having some moments. Does not appear to be experiencing too much sedation in the AM but will need to watch. As well, these medications can increase stroke risk in the elderly - Recommend to avoid benzodiazepines but may need Haldol IM if combativeness or agitation becomes threatening to safety; Also had Zyprexa 2.5 mg PRN ordered but did not need to use this - Neurology consulted - suspect this is a vascular dementia with sensory losses contributing to his hallucinations - recommend outpatient F/U (if patient will agree) - recommended to convert ASA to Plavix Stenosis of left internal carotid artery: - MRA shows > 75% stenosis at the origin of the L ICA and < 50% luminal narrowing of R ICA; also reveals age-indeterminant thrombosis of the L vertebral artery that is reconstituted at skull base - Vascular consulted - no intervention at this time - can re-evaluate pending improvement in mentation - When discussed with the patient on 03/15 he reports he knew about his carotid stenosis and reports he wouldn't want surgery regardless because of his age and the risk - Convert from ASA to Plavix 75 mg daily Elevated troponin: - Troponins peaked at 0.123 and trended down - No chest pain or SOB; history of CABG - Echo - EF 65-70%; no regional wall motion abnormalities - Plavix 75 mg daily; Atorvastatin 40 mg daily; Metoprolol 25 mg daily Fall: - Patient reports this was mechanical as he has RLS and was trying to get out of bed but got tangled in his bedding. confirms fall but states he more rolled out of bed then had a direct fall - He clearly does exhibit some tremulous movements at times and given his poor vision this is likely multifactorial - it does not appear that falls are frequent - Used Requip in the past without improvement of symptoms HTN (hypertension): - Metoprolol 25 mg daily CAD (coronary artery disease): - H/O CABG - Plavix 75 mg daily; Atorvastatin 40 mg daily; Metoprolol 25 mg daily Hypothyroid: - TSH WNL - Levothyroxine 88 mcg daily Constipation: - Usually uses daily Miralax Prescriptions: New quetiapine 25 mg Tablet 12.5 mg PO HS 30 Days Qty: 15 RF: 0 polyethylene glycol 3350 [Miralax] 17 gram Powder In Packet 17 g PO DAILY 30 Days Qty: 30 RF: 0 clopidogrel 75 mg Tablet 75 mg PO QAM 30 Days Qty: 30 RF: 0 Continue atorvastatin [Lipitor] 40 mg Tablet 40 mg PO HS RF: 0 brinzolamide 1 % drops,suspension 1 drp ophthalmic (eye) BID RF: 0 levothyroxine 88 mcg Tablet 88 mcg PO QAM RF: 0 metoprolol tartrate 25 mg Tablet 25 mg PO QAM RF: 0 brimonidine-timolol [Combigan] 0.2-0.5 % drops 1 drp ophthalmic (eye) BID RF: 0 bimatoprost [Lumigan] 0.01 % drops 1 drp ophthalmic (eye) HS RF: 0 Discontinued aspirin 81 mg Tablet,Delayed Release (Dr/Ec) 81 mg PO QAM RF: 0 Stand-Alone Forms: My [facility] Discharge Orders: Discharge Order (Routine); Ordered 03/19/18 Ordered By: Cassie Mondragon Skilled Items Patient informed of condition?: Yes DNR: Yes Discharge Level of Care: Skilled Communicable Disease: No Discharge Prognosis: Stable Admission Data Admit Date/Time: 03/14/18 11:52 Attending Provider: Alexandru Oswald Admit Provider: Trudy Layne Primary Care Provider: Ruby Denson I Other Providers: Cale Seaman III ; Ney Juarez ; Layne,Trudy A Service: Medical Other Interventions: Discharge Summary Assessment (RN) Last Done: 03/19/18 12:29 Pending Studies at Discharge: Yes Studies:: B1 - Thiamine DC Date/Time DO NOT enter until pt leaves facility: 03/19/18 15:04
== END 2018-03-19 15:04 | DRG 884 ==
LOC: ED 09:03 → SUATTDRO 11:52 → 2S 11:52 → 4E 03-16 12:57